=== PATIENT | female | born 1985 ===

== ENCOUNTER 2020-10-06 14:00 | Outpatient (REF) | payer OTHER, SELFPAY ==
[2020-10-08 13:26] LABS: C. trachomatis RNA TMA NOT DETECTED (NOT DETECTED); N. gonorrhoeae RNA TMA NOT DETECTED (NOT DETECTED)
== END 2020-10-06 14:01 | disposition home or self-care (01) ==
LOC: HO.LAB 14:00
PROVIDERS: PCP Internal Medicine; Visit Provider Advanced Practice Midwife
DX: Z01.419 Encounter for gynecological examination (general) (routine) without abnormal findings (principal); Z20.2 Contact with and (suspected) exposure to infections with a predominantly sexual mode of transmission
CPT/HCPCS: 36415; 87491; 87591; 99395

== ENCOUNTER 2020-10-24 10:56 | Outpatient (REF) | payer OTHER, SELFPAY ==
[2020-10-24 12:51] LABS: MANUAL DIFF FLAG NO
[2020-10-24 13:05] LABS: Basophils Percent Auto 0.4 % (0-2); Eosinophils Absolute Auto 0.1 X10*3/uL (0.0-0.4); Eosinophils Percent Auto 1.2 % (0-4); Hematocrit 39.1 % (37-47); Hemoglobin 12.3 g/dl (12.0-16.0); Imm Gran Abs Auto 0.01 X10*3/uL (0.00-0.03); Imm Gran Pct Auto 0.2 % (0.0-0.4); Lymphocytes Absolute Auto 1.9 X10*3/uL (1.2-4.9); Lymphocytes Percent Auto 39.3 % (20-40); Mean Corpuscular HGB Conc 31.5 g/dl (31.0-35.0); Mean Corpuscular Hemoglobin 26.1 pg (27.0-33.0); Mean Corpuscular Volume 82.8 fL (80-98); Mean Platelet Volume 11.4 fL (9.4-12.3); Monocytes Absolute Auto 0.4 X10*3/uL (0.1-1.2); Monocytes Percent Auto 8.6 % (2-11); Neutrophils Absolute Auto 2.5 X10*3/uL (2.0-8.3); Neutrophils Percent Auto 50.3 % (45-73); Platelet Count 243 X10*3/uL (160-400); Red Blood Count 4.72 X10*6/uL (4.20-5.50); White Blood Count 4.9 X10*3/uL (4.8-10.8)
[2020-10-24 13:40] LABS: Alanine Aminotransferase 7 U/L (0-31); Albumin Level 4.3 g/dL (3.5-5.0); Alkaline Phosphatase 56 U/L (39-117); Anion Gap 11 (12-20); Aspartate Amino Transferase 15 U/L (5-31); Bilirubin Total 0.4 mg/dL (0.0-1.0); Blood Urea Nitrogen 16 mg/dL (9-16); Calcium 9.4 mg/dL (8.4-10.2); Carbon Dioxide 28 mmol/L (22-29); Chloride 104 mmol/L (96-108); Cholesterol 177 mg/dL; Estimated Glomerular Filt Rate > 60; Glucose Fasting 93 mg/dL (60-99); HDL Cholesterol 54 mg/dL; LDL Cholesterol Calculated 112 mg/dl; Potassium 4.1 mmol/L (3.3-5.1); Sodium 139 mmol/L (135-145); Total Protein 7.4 g/dL (6.5-8.0); Triglycerides 56 mg/dL
[2020-10-24 14:01] LABS: Thyroid Stimulating Hormone 2.57 uIU/mL (0.32-4.0); Vitamin D 25-OH Total 17.2 ng/mL (>30)
[2020-10-25 18:57] LABS: C. trachomatis RNA TMA NOT DETECTED (NOT DETECTED); N. gonorrhoeae RNA TMA NOT DETECTED (NOT DETECTED)
== END 2020-10-24 10:57 | disposition home or self-care (01) ==
LOC: HO.LAB 10:56
PROVIDERS: Absent Provider Advanced Practice Midwife; PCP Internal Medicine; Visit Provider Internal Medicine
DX: Z00.00 Encounter for general adult medical examination without abnormal findings (principal); J45.40 Moderate persistent asthma, uncomplicated; J30.2 Other seasonal allergic rhinitis; Z20.2 Contact with and (suspected) exposure to infections with a predominantly sexual mode of transmission
CPT/HCPCS: 36415; 80053; 80061; 82306; 84443; 85025; 87491; 87591

== ENCOUNTER → 2020-12-20 08:00 | Outpatient (BNVA) | payer OTHER, SELFPAY | PROVIDERS: PCP Internal Medicine; Visit Provider Obstetrics & Gynecology | DX: O21.9 Vomiting of pregnancy, unspecified (principal); R11.10 Vomiting, unspecified | CPT/HCPCS: 81025; 99212 ==

== ENCOUNTER 2020-12-22 12:39 | Outpatient (REF) | payer OTHER, SELFPAY ==
--- NOTE | ~2020-12-22 | US_ITS ---
EXAMINATION: US OBSTETRICAL ULTRASOUND CLINICAL INFORMATION: Unknown LMP. For size and dates. COMPARISON: None. LMP: 11/07/2020. Gestational age by maternal dates is 6 weeks and 3 days. Estimated date of delivery by maternal dates is 08/14/2021 . TECHNIQUE: Transabdominal and transvaginal imaging of pelvis is performed. FINDINGS: There is a single live intrauterine fetus within crown-rump length of 0.41 cm corresponding to 6 weeks and 1 day and JASSON of 08/16/2021. There is visualization of gestational sac, yolk sac and pole. There is no motion seen yet. The heart rate measures 185 bpm and is variable There is a hypoechoic area adjacent to gestational sac suspicious for a subchorionic bleed. Patient does have some spotting and cramping since yesterday. Right ovary measures 4.5 x 2.3 x 1.9 cm and a small corpus luteal cyst within measuring 1.9 x 1 0.3 to 1.8 cm. Left ovary measures 2.8 x 1.3 x 1.8 cm. There is no free fluid adjacent ovary. US/US OB <= 14 weeks fetus IMPRESSION: 1. Single intrauterine gestation with ultrasound gestational age of 6 weeks and 1 day +/- 4 days. 2. Estimated date of delivery is 08/16/2021 +/- 4 days. 3. Suspect small subchorionic bleed adjacent to gestational sac. 4. Small corpus luteal cyst right ovary.
--- NOTE | ~2020-12-22 | US_ITS ---
EXAMINATION: US OBSTETRICAL ULTRASOUND CLINICAL INFORMATION: Unknown LMP. For size and dates. COMPARISON: None. LMP: 11/07/2020. Gestational age by maternal dates is 6 weeks and 3 days. Estimated date of delivery by maternal dates is 08/14/2021 . TECHNIQUE: Transabdominal and transvaginal imaging of pelvis is performed. FINDINGS: There is a single live intrauterine fetus within crown-rump length of 0.41 cm corresponding to 6 weeks and 1 day and JASSON of 08/16/2021. There is visualization of gestational sac, yolk sac and pole. There is no motion seen yet. The heart rate measures 185 bpm and is variable There is a hypoechoic area adjacent to gestational sac suspicious for a subchorionic bleed. Patient does have some spotting and cramping since yesterday. Right ovary measures 4.5 x 2.3 x 1.9 cm and a small corpus luteal cyst within measuring 1.9 x 1 0.3 to 1.8 cm. Left ovary measures 2.8 x 1.3 x 1.8 cm. There is no free fluid adjacent ovary. US/US OB transvaginal IMPRESSION: 1. Single intrauterine gestation with ultrasound gestational age of 6 weeks and 1 day +/- 4 days. 2. Estimated date of delivery is 08/16/2021 +/- 4 days. 3. Suspect small subchorionic bleed adjacent to gestational sac. 4. Small corpus luteal cyst right ovary.
== END 2020-12-22 12:40 | disposition home or self-care (01) ==
LOC: HO.US 12:39
PROVIDERS: PCP Internal Medicine; Visit Provider Obstetrics & Gynecology
DX: Z36.87 Encounter for antenatal screening for uncertain dates (principal); Z34.91 Encounter for supervision of normal pregnancy, unspecified, first trimester
CPT/HCPCS: 76801; 76817

== ENCOUNTER 2020-12-26 15:13 | Emergency (ER) | payer OTHER, SELFPAY ==
[2020-12-26 17:33] VITALS: BP 137/83; PULSE 68; RESP 20; TEMP 36.8; O2SAT 99; BMI 24.6
[2020-12-26 17:55] LABS: MANUAL DIFF FLAG NO
[2020-12-26 18:01] LABS: Glucose Urine UA NEG (NEG); Leukocyte Esterase Urine NEG (NEG); Nitrite Urine NEG (NEG); Specific Gravity - Urine >= 1.030 (1.005-1.025); Urine Blood 2+ (NEG); Urine Ketones NEG (NEG); Urine Protein NEG (NEG-TRACE)
[2020-12-26 18:07] LABS: Appearance Urine CLEAR; Color Urine YELLOW
[2020-12-26 18:15] LABS: Basophils Percent Auto 0.3 % (0-2); Eosinophils Absolute Auto 0.1 X10*3/uL (0.0-0.4); Eosinophils Percent Auto 0.7 % (0-4); Hematocrit 37.7 % (37-47); Hemoglobin 12.4 g/dl (12.0-16.0); Imm Gran Abs Auto 0.02 X10*3/uL (0.00-0.03); Imm Gran Pct Auto 0.3 % (0.0-0.4); Lymphocytes Absolute Auto 1.9 X10*3/uL (1.2-4.9); Lymphocytes Percent Auto 24.9 % (20-40); Mean Corpuscular HGB Conc 32.9 g/dl (31.0-35.0); Mean Corpuscular Hemoglobin 27.3 pg (27.0-33.0); Mean Platelet Volume 10.7 fL (9.4-12.3); Monocytes Absolute Auto 0.6 X10*3/uL (0.1-1.2); Monocytes Percent Auto 7.3 % (2-11); Neutrophils Absolute Auto 5.1 X10*3/uL (2.0-8.3); Neutrophils Percent Auto 66.5 % (45-73); Platelet Count 248 X10*3/uL (160-400); Red Blood Count 4.54 X10*6/uL (4.20-5.50); White Blood Count 7.7 X10*3/uL (4.8-10.8)
[2020-12-26 18:21] LABS: Alanine Aminotransferase 16 U/L (0-31); Albumin Level 4.4 g/dL (3.5-5.0); Alkaline Phosphatase 61 U/L (39-117); Anion Gap 12 (12-20); Aspartate Amino Transferase 18 U/L (5-31); Bilirubin Direct < 0.2 mg/dL (0.0-0.5); Bilirubin Total 0.3 mg/dL (0.0-1.0); Blood Urea Nitrogen 15 mg/dL (9-16); Calcium 9.3 mg/dL (8.4-10.2); Carbon Dioxide 26 mmol/L (22-29); Chloride 102 mmol/L (96-108); Creatinine Clr Calc Pharmacy 87.6; Estimated Glomerular Filt Rate > 60; Glucose Random 116 mg/dL (60-115); Lipase 17 U/L (8-78); Potassium 4.3 mmol/L (3.3-5.1); Sodium 136 mmol/L (135-145); Total Protein 7.7 g/dL (6.5-8.0)
[2020-12-26 18:39] LABS: Mucus Urine 2+ /LPF; Squamous Epithelial Cell Urine 1+ /LPF; WBC Urine 0 /HPF (0-4)
--- NOTE | 2020-12-26 21:37 | ED_ITS ---
HPI - Nausea/Vomiting/Diarrhea General Chief complaint: Nausea/Vomiting/Diarrhea Stated complaint: Cramping/Vaginal bleeding/6 wks preg Time Seen by Provider: 12/26/20 21:07 Source: patient Mode of arrival: ambulatory History of Present Illness HPI Narrative: 35-year-old female, gravid, recent ultrasound demonstrating an IUP and as of today 7 weeks. You comes in with persistent related nausea and vomiting without fever, chills, diarrhea and describes cramping as well as vaginal spotting. Patient states that she was seen in the clinic and started on B6, but this has not helped because she has continued to be nauseous and vomiting. Related Data Home Medications Medication Instructions Recorded Confirmed albuterol sulfate 90 mcg/actuation 2 puff INHALATION Q6H PRN 10/06/20 aerosol inhaler cetirizine 10 mg capsule 10 mg PO DAILY PRN 10/06/20 Previous Rx's Medication Instructions Recorded PNV no.151-iron 27 mg-folic 800 1 cap PO DAILY #90 cap 12/20/20 mcg-omega3 260 [id number] capsule doxylamine succinate 25 mg tablet 25 mg PO BEDTIME PRN #90 tab 12/20/20 pyridoxine (vitamin B6) 25 mg 25 mg PO TID #90 tab 12/20/20 tablet ondansetron 4 mg PO Q8H PRN #7 tab 12/26/20 Allergies Allergy/AdvReac Type Severity Reaction Status Date / Time aspirin [ASPIRIN] Allergy Severe ITCHINESS, Verified 12/20/20 08:06 itch SEAFOOD Allergy Unknown RASH Uncoded 12/20/20 08:06 Review of Systems Review of Systems: Positives and negatives as stated in HPI 10 point review of systems is otherwise negative. FOR[facility]LY [facility] Past Medical History Source: nursing notes reviewed Medical History Asthma Breast inflammation Family History Family History Mother HTN (hypertension) Father HTN (hypertension) Social History Social History Alcohol intake: never Smoking Status: Never smoker Advance Directives: No Gender identity: female Physical Exam Vital Signs: Vital Signs: Last Vital Signs Temp 98.2 F 12/26/20 17:33 Pulse 68 12/26/20 17:33 Resp 20 12/26/20 17:33 BP 137/83 12/26/20 17:33 Pulse Ox 99 12/26/20 17:33 Body Mass Index 24.6 VITAL SIGNS: Reviewed. GENERAL: Well developed, well nourished, in no acute distress. HEAD: Normocephalic/atraumatic EYES: PERRLA, EOMI OROPHARYNX: no oral lesions noted, posterior pharynx clear, tacky mucosa NECK: Supple, no adenopathy LUNGS: Normal breath sounds. No adventitious sounds or accessory muscle use. SpO2<99> CARDIOVASCULAR: Regular rate and rhythm without noted murmurs ABDOMEN: Soft, non-tender, non-distended with bowel sounds. MUSCULOSKELETAL: No tenderness, deformities, or effusions noted on gross inspection. EXTREMITIES: No edema. SKIN: Inspection of the skin reveals no rashes NEUROLOGIC: Alert and oriented x 4. Course Course Course Narrative: 35-year-old female at 7 weeks with history and clinical presentation consistent with related nausea and vomiting and mild dehydration. Patient's cramping and spotting that is been noted has been e valuated on 12/22 with transvaginal ultrasound and patient was noted to have a suspected subchorionic bleed next to the gestational sac. She was informed at this time that she may continue to have a little bit of spotting here in there and that this is common in the 1st trimester. However, if she notes a large your gush of blood or any clots she should return to the emergency department. Otherwise, she was informed that she would be treated with IV fluids as well as Zofran and 1 she was able to tolerate oral intake should be discharged home with instructions to follow-up with her [employer]. On re-evaluation patient is feeling much better and has tolerated oral intake. She will be discharged home in stable condition. MDM - Nausea/Vomiting/Diarrhea Lab Data Result diagrams: 12/26/20 17:48 12/26/20 17:48 Labs: Lab Results 12/26/20 12/26/20 12/26/20 Range/Units 17:48 17:48 17:48 WBC 7.7 (4.8-10.8) X10*3/uL RBC 4.54 (4.20-5.50) X10*6/uL Hgb 12.4 (12.0-16.0) g/dl Hct 37.7 (37-47) % MCV 83.0 (80-98) fL MCH 27.3 (27.0-33.0) pg MCHC 32.9 (31.0-35.0) g/dl RDW 13.0 (11.0-16.0) % Plt Count 248 (160-400) X10*3/uL MPV 10.7 (9.4-12.3) fL Immature Gran % (Auto) 0.3 (0.0-0.4) % Neut % (Auto) 66.5 (45-73) % Lymph % (Auto) 24.9 (20-40) % Evans % (Auto) 7.3 (2-11) % Eos % (Auto) 0.7 (0-4) % Baso % (Auto) 0.3 (0-2) % Lymph # (Auto) 1.9 (1.2-4.9) X10*3/uL Evans # (Auto) 0.6 (0.1-1.2) X10*3/uL Eos # (Auto) 0.1 (0.0-0.4) X10*3/uL Baso # (Auto) 0.0 (0.0-0.2) X10*3/uL Abs Immat Gran (auto) 0.02 (0.00-0.03) X10*3/uL Absolute Neuts (auto) 5.1 (2.0-8.3) X10*3/uL Absolute Nucleated RBC 0.000 (0.0-0.012) X10*3/uL Nucleated RBC % (auto) 0.0 (0.0-0.2) /100WBC Sodium 136 (135-145) mmol/L Potassium 4.3 (3.3-5.1) mmol/L Chloride 102 (96-108) mmol/L Carbon Dioxide 26 (22-29) mmol/L Anion Gap 12 (12-20) BUN 15 (9-16) mg/dL Creatinine 0.71 (0.5-1.4) mg/dL Estim Creat Clear Calc 87.6 Estimated GFR > 60 Random Glucose 116 H (60-115) mg/dL Calcium 9.3 (8.4-10.2) mg/dL Total Bilirubin 0.3 (0.0-1.0) mg/dL Direct Bilirubin < 0.2 (0.0-0.5) mg/dL AST 18 (5-31) U/L ALT 16 (0-31) U/L Alkaline Phosphatase 61 (39-117) U/L Total Protein 7.7 (6.5-8.0) g/dL Albumin 4.4 (3.5-5.0) g/dL Lipase 17 (8-78) U/L Urine Color YELLOW Urine Appearance CLEAR Urine pH 6.0 (5.0-8.0) Ur Specific [place] >= 1.030 H (1.005-1.025) Urine Protein NEG (NEG-TRACE) MG/DL Urine Glucose (UA) NEG (NEG) MG/DL Urine Ketones NEG (NEG) MG/DL Urine Blood 2+ H (NEG) Urine Nitrite NEG (NEG) Ur Leukocyte Esterase NEG (NEG) Urine RBC 1-4 (0) /HPF Urine WBC 0 (0-4) /HPF Ur Squamous Epith Cells 1+ /LPF Urine Bacteria NONE /LPF Urine Mucus 2+ /LPF Discharge Plan Discharge Clinical Impression: Nausea and vomiting during , First trimester bleeding Patient Disposition: Home, Self-Care Instructions: Nausea and Vomiting in (ED), Non-Threatening First Trimester Vaginal Bleed (ED) Additional Instructions: 1. Resume all home medications as prescribed. 2. Continue to stay well hydrated. 3. 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 Do not hesitate to return to the emergency department should you experience any acute worsening of symptoms. Prescriptions: New ondansetron 4 mg tablet,disintegrating 4 mg PO Q8H PRN (Reason: nausea and vomiting) Qty: 7 RF: 0 No Action albuterol sulfate 90 mcg/actuation HFA aerosol inhaler 2 puff inhalation Q6H PRNRF: 0 Zyrtec 10 mg capsule 10 mg PO DAILY PRNRF: 0 Multi-DHA(with vit K) 27 mg iron-800 mcg-260 mg capsule 1 cap PO DAILY Qty: 90 RF: 3 pyridoxine (vitamin B6) 25 mg tablet 25 mg PO TID Qty: 90 RF: 3 Sleep Aid (doxylamine) 25 mg tablet 25 mg PO BEDTIME PRN (Reason: sleep) Qty: 90 RF: 3 Referrals: London Curry MD, DO [Primary Care Provider] - 2 days
[2020-12-26] MEDS: 0.9 % Sodium Chloride 1,000 ML 999 ML IV (22:20)
[2020-12-26 23:00] VITALS: BP 122/79; PULSE 70; RESP 15; O2SAT 99
== END 2020-12-26 23:54 | disposition home or self-care (01) ==
PROVIDERS: Emergency Provider Student in an Organized Health Care Education/Training Program; PCP Internal Medicine
DX: O20.9 Hemorrhage in early pregnancy, unspecified (principal); O21.9 Vomiting of pregnancy, unspecified; Z3A.01 Less than 8 weeks gestation of pregnancy
CPT/HCPCS: 36415; 80048; 80076; 81001; 83690; 85025; 96360; 99284

== ENCOUNTER → 2021-01-12 13:55 | Outpatient (BNVA) | payer OTHER, SELFPAY | PROVIDERS: Visit Provider Advanced Practice Midwife | DX: O09.529 Supervision of elderly multigravida, unspecified trimester (principal); O09.291 Supervision of pregnancy with other poor reproductive or obstetric history, first trimester; Z3A.09 9 weeks gestation of pregnancy; Z98.82 Breast implant status | CPT/HCPCS: 99212 ==

== ENCOUNTER 2021-01-16 11:15 | Outpatient (REF) | payer OTHER, SELFPAY ==
[2021-01-16 13:07] LABS: MANUAL DIFF FLAG NO
[2021-01-16 13:21] LABS: Basophils Percent Auto 0.2 % (0-2); Eosinophils Percent Auto 0.5 % (0-4); Hemoglobin 11.4 g/dl (12.0-16.0); Imm Gran Abs Auto 0.02 X10*3/uL (0.00-0.03); Imm Gran Pct Auto 0.3 % (0.0-0.4); Lymphocytes Absolute Auto 1.7 X10*3/uL (1.2-4.9); Lymphocytes Percent Auto 27.6 % (20-40); Mean Corpuscular HGB Conc 32.6 g/dl (31.0-35.0); Mean Corpuscular Hemoglobin 26.9 pg (27.0-33.0); Mean Corpuscular Volume 82.5 fL (80-98); Mean Platelet Volume 10.4 fL (9.4-12.3); Monocytes Absolute Auto 0.3 X10*3/uL (0.1-1.2); Monocytes Percent Auto 5.5 % (2-11); Neutrophils Absolute Auto 4.1 X10*3/uL (2.0-8.3); Neutrophils Percent Auto 65.9 % (45-73); Platelet Count 250 X10*3/uL (160-400); Red Blood Count 4.24 X10*6/uL (4.20-5.50); Red Cell Distribution Width 13.5 % (11.0-16.0); White Blood Count 6.2 X10*3/uL (4.8-10.8)
[2021-01-16 13:43] LABS: Glucose 1 Hour PP 50gm Dose 159 mg/dL (60-140)
[2021-01-16 13:47] LABS: Alanine Aminotransferase 10 U/L (0-31); Aspartate Amino Transferase 13 U/L (5-31); Blood Urea Nitrogen 9 mg/dL (9-16); Estimated Glomerular Filt Rate > 60
[2021-01-16 14:00] LABS: Syphilis Screen Nonreactive (Nonreactive)
[2021-01-16 15:05] LABS: Creatinine Urine 254.36 mg/dL; Protein/Creatinine Ratio, Ur 0.07 (<0.2); Total Protein Urine Random 17 mg/dL (<12)
[2021-01-16 15:06] LABS: Amphetamine Screen Urine Not Detected (Not Detect); Barbiturates, Urine Not Detected (Not Detect); Benzodiazepines Screen Urine Not Detected (Not Detect); Cannabinoid Screen Urine Not Detected (Not Detect); Cocaine Screen Urine Not Detected (Not Detect); Opiate Screen Urine Not Detected (Not Detect); Phencyclidine Screen Urine Not Detected (Not Detect)
[2021-01-17 04:53] LABS: HBsAGNum1 0.14 S/CO (0.00-0.99); HIV AB/AG Nonreactive (Nonreactive); HIV Num 1 0.06 S/CO (0.00-0.99); Hepatitis B Surface Antigen Negative (Negative); ~Hepatitis C Antibody Nonreactive (Nonreactive)
[2021-01-17 09:11] LABS: Rubella IgG Antibody 1.13 Index
[2021-01-17 09:38] LABS: CT PCR NOT DETECTED (Not Detect.); NG PCR NOT DETECTED (Not Detect.)
[2021-01-18 06:12] LABS: Varicella IgG Antibody <135.00 index
== END 2021-01-16 11:16 | disposition home or self-care (01) ==
LOC: HO.LAB 11:15
PROVIDERS: PCP Internal Medicine; Visit Provider Advanced Practice Midwife
DX: O09.291 Supervision of pregnancy with other poor reproductive or obstetric history, first trimester (principal); O09.521 Supervision of elderly multigravida, first trimester; Z20.2 Contact with and (suspected) exposure to infections with a predominantly sexual mode of transmission; Z83.3 Family history of diabetes mellitus
CPT/HCPCS: 80307; 82565; 84156; 84450; 84460; 84520; 84550; 85025; 86762; 86780; 86787; 86803; 86850; 86900; 86901; 87086; 87340; 87389; 87491; 87591

== ENCOUNTER 2021-01-18 10:24 | Outpatient (REF) | payer OTHER, SELFPAY ==
[2021-01-18 11:54] LABS: Glucose Fasting 84 mg/dL (60-99)
[2021-01-18 12:28] LABS: Glucose 1 Hour 154 mg/dL
[2021-01-18 13:35] LABS: Glucose 2 Hour 125 mg/dL
[2021-01-18 14:51] LABS: Glucose 3 Hour 121 mg/dL
== END 2021-01-18 10:25 | disposition home or self-care (01) ==
LOC: HO.LAB 10:24
PROVIDERS: Visit Provider Advanced Practice Midwife
DX: R73.09 Other abnormal glucose (principal)
CPT/HCPCS: 36415; 82951

== ENCOUNTER 2021-01-27 10:49 | Outpatient (REF) | payer OTHER, SELFPAY ==
--- NOTE | ~2021-01-27 | US_ITS ---
EXAMINATION: OBSTETRICAL ULTRASOUND, FIRST TRIMESTER HISTORY: 35-year-old at 11.4 weeks of gestation AMA NT screening COMPARISON: 12/22/2020 TECHNIQUE: Real time transabdominal imaging with color and M-mode Doppler. FINDINGS: A single, live IUP CRL of 52.6 mm c/w 12.0wks is noted. Heart Rate: 169 beats per minute. Normal yolk sac seen. NT was 1.1.mm. NB Present The embryo appears sonographically wnl for this GA. Both maternal ovaries are seen and appear normal. GESTATIONAL AGE: 1. Established GA: 11.4 wks 2. GA from [facility]: 12.0 wks ESTIMATED DATE OF DELIVERY: 1. Established JASSON: 08/14/2021 2. JASSON from [facility]: 08/11/2021 US/US OB 1T nuc measure add IMPRESSION: 1. A single live IUP 2. Size equals dates 3. NT of 1.1 mm MFM Consultation: I reviewed the ultrasound findings along with significance of NT measurement. The NT of less than 3mm is generally reassuring. However, the sensitivity for T21 detection is only 60%. I reviewed the availability of serum aneuploidy screening which includes cell-free DNA and placental protein based tests. I discussed the sensitivity, false-positive rate, and other limitations associated with each test. I also reviewed the availability of invasive diagnostic tests that are associated small but definite risk of miscarriage. We also reviewed the differences between screening tests and diagnostic tests. After our discussion, she opted for the First trimester screening that is based on cell-free DNA or non-invasive testing (NIPT). The result will be faxed to your office in approximately 7 days. A follow up at 18 weeks for survey has been scheduled. Thank you very much for this referral. Total time 30 minutes. The time spent was devoted to counseling the patient about the disease and diagnosis, coordinating care including reviewing her records, pertinent lab data and studies, as well as discussing diagnostic evaluation and workup, plan therapeutic interventions and future disposition of care. This includes any additional research needed to obtain further information in formulating the plan of care of this patient. This note was generated with a voice recognition program. Please excuse any errors which may have been overlooked during my review of this note. Sometimes these errors may affect the content or meaning of a given sentence.
== END 2021-01-27 10:50 | disposition home or self-care (01) ==
LOC: HO.US 10:49
PROVIDERS: PCP Internal Medicine; Visit Provider Advanced Practice Midwife
DX: O09.511 Supervision of elderly primigravida, first trimester (principal); Z36.82 Encounter for antenatal screening for nuchal translucency; Z3A.11 11 weeks gestation of pregnancy
CPT/HCPCS: 76813; 76814

== ENCOUNTER 2021-02-01 10:38 | Outpatient (REF) | payer OTHER, SELFPAY ==
[2021-02-01 15:24] LABS: CT PCR NOT DETECTED (Not Detect.); NG PCR NOT DETECTED (Not Detect.)
== END 2021-02-01 10:39 | disposition home or self-care (01) ==
LOC: HO.LAB 10:38
PROVIDERS: Visit Provider Advanced Practice Midwife
DX: O21.9 Vomiting of pregnancy, unspecified (principal); O99.011 Anemia complicating pregnancy, first trimester; D64.9 Anemia, unspecified; O35.9XX0 Maternal care for (suspected) fetal abnormality and damage, unspecified, not applicable or unspecified; Z3A.12 12 weeks gestation of pregnancy
CPT/HCPCS: 87491; 87591; 99212

== ENCOUNTER 2021-03-01 10:29 | Outpatient (REF) | payer OTHER, SELFPAY ==
[2021-03-02 05:35] LABS: CT PCR NOT DETECTED (Not Detect.); NG PCR NOT DETECTED (Not Detect.)
[2021-03-02 09:47] LABS: BV Int Neg Control Negative (Negative); BV Int Pos Control Positive (Positive)
== END 2021-03-01 10:30 | disposition home or self-care (01) ==
LOC: HO.LAB 10:29
PROVIDERS: Visit Provider Advanced Practice Midwife
DX: O26.899 Other specified pregnancy related conditions, unspecified trimester (principal); R10.2 Pelvic and perineal pain; Z3A.16 16 weeks gestation of pregnancy
CPT/HCPCS: 81003; 87480; 87491; 87510; 87591; 87660; 99212

== ENCOUNTER 2021-03-10 10:28 | Outpatient (REF) | payer OTHER, SELFPAY ==
--- NOTE | ~2021-03-10 | US_ITS ---
EXAMINATION: OBSTETRICAL ULTRASOUND, Follow up HISTORY: 35-year-old at the 17.4 weeks of gestation Lower abdominal tenderness COMPARISON: 01/27/2021 TECHNIQUE: Real time transabdominal imaging with color and M-mode Doppler. PRESENTATION: Vertex PLACENTA LOCATION: Anterior without previa. Cervix 4.8 cm on transabdominal view. AMNIOTIC FLUID: Normal MEASUREMENTS: 1. Biparietal Diameter: 4.3 cm; 16.5 wks 2. Head Circumference: 13.9 cm; 17.3 wks 3. Abdominal Circumference: 11.5 cm; 17.2 wks 4. Femur Length: 2.3 cm; 17.1 wks 5. Heart Rate: 157 beats per minute WEIGHT: Estimated weight is 184 grams (0 lbs 6 oz) -- 21 %. The survey was not attempted due to early gestational age. Bilateral ovaries are benign. GESTATIONAL AGE: 1. Established GA: 17.4 wks 2. GA from [facility]: 17.1 wks ESTIMATED DATE OF DELIVERY: 1. Established JASSON: 08/14/2021 2. JASSON from [facility]: 08/17/2021 US/US OB follow up IMPRESSION: 1. A single fetus with appropriate interval growth. 2. Normal adnexa and ovaries. 3. Normal cervical length transabdominally view I reviewed the limitations of ultrasound. Gave her reassurance that the adnexa are benign. The lower uterine segments and pain is most likely ligamental in origin. RECOMMENDATIONS: 1. She is to follow-up in 2 weeks for survey Thank you very much for this referral. This note was generated with a voice recognition program. Please excuse any errors which may have been overlooked during my review of this note. Sometimes these errors may affect the content or meaning of a given sentence.
== END 2021-03-10 10:29 | disposition home or self-care (01) ==
LOC: HO.US 10:28
PROVIDERS: Visit Provider Advanced Practice Midwife
DX: O09.512 Supervision of elderly primigravida, second trimester (principal); O26.892 Other specified pregnancy related conditions, second trimester; R10.2 Pelvic and perineal pain
CPT/HCPCS: 76816

== ENCOUNTER 2021-03-24 08:52 | Outpatient (REF) | payer OTHER, SELFPAY ==
--- NOTE | ~2021-03-24 | US_ITS ---
EXAMINATION: US OBSTETRICAL CLINICAL INFORMATION: 35-year-old at the 19.4 weeks of gestation [place] Screening for anomaly COMPARISON: 03/10/2021 TECHNIQUE: Real-time transabdominal ultrasound was performed using C1-5 megahertz transducer. FINDINGS: A single, active, fetus is seen in vertex presentation. The placenta is anterior without previa, and the amniotic fluid volume is wnl. MEASUREMENTS: 1. Biparietal Diameter: 4.3 cm; 19.0 wks 2. Occipital Frontal Diameter: 6.1 cm 3. Head Circumference: 17.0 cm; 19.5 wks 4. Abdominal Circumference: 14.3 cm; 19.5 wks 5. Femur Length: 3.2 cm; 19.6 wks 6. Humerus Length: 6 3.0 cm; 19.5 wks 7. Tibia Length: 2.6 cm; 19.3 wks 8. Ulna Length: 2.7 cm; 20.1 wks 9. Lateral ventricle: 0.53 cm 10. Cerebellum: 2.0 cm; 20.5 wks 11. Cisterna Magna: 0.5 cm 12. Nuchal Fold: 4.5 mm 13. Heart Rate: 140 beats per minute Rt ovary: normal Lt ovary: Not visualized Cervical length 3.8 cm on T/A. GESTATIONAL AGE: 1. Established GA: 19.4 wks 2. GA from [facility]: 19.4 wks ESTIMATED DATE OF DELIVERY: 1. Established JASSON: 08/14/2021 2. JASSON from [facility]: 08/14/2021 ANATOMY: The visualized anatomy includes but not limited to: 1. Cranium: Normal 2. Intracranial anatomy: cavum septum pellucidi, lateral ventricles, choroid plexus, cerebellum, posterior fossa, third and fourth ventricles. 3. face: orbits, lip/palate, profile, nasal bone 4. Heart: four-chamber view of the heart, ventricular septum, foramen ovale, pulmonary vein, left and right outflow tracts, three-vessel view, 3 vessel trachea view, aortic and ductal arches, situs.. 5. Diaphragm: Normal 6. Abdominal wall: Normal 7. Cord Insertion: Normal 8. Spine: Cervical, thoracic, lumbar, sacral. 9. Stomach: Normal size and shape 10. Right Kidney: Normal 11. Left Kidney: Normal 12. 3 vessel cord: Normal 13. Upper extremity: Open hands, fifth digit. 14. Lower extremity: Tibia, fibula, bilateral feet. 15. Bladder: Normal 16. Genitalia: Male, patient aware US/US OB /maternal detail IMPRESSION: 1. Single, living, intrauterine with appropriate biometry. 2. Normal survey DISCUSSION: I reviewed today's ultrasound findings. We discussed the limitations of ultrasound in diagnosing aneuploidy and other congenital abnormalities. I reviewed the differences between screening test and diagnostic test. Amniocentesis was discussed and declined. She was informed that the baseline incidence of congenital abnormalities is approximately 3-5%. Not all these conditions are diagnosable in utero. RECOMMENDATIONS: 1. Follow-up when necessary Thank you for allowing me to participate in her care. Total time 30 minutes. The time spent was devoted to counseling the patient about the disease and diagnosis, coordinating care including reviewing her records, pertinent lab data and studies, as well as discussing diagnostic evaluation and workup, plan therapeutic interventions and future disposition of care. This includes any additional research needed to obtain further information in formulating the plan of care of this patient. This note was generated with a voice recognition program. Please excuse any errors which may have been overlooked during my review of this note. Sometimes these errors may affect the content or meaning of a given sentence.
== END 2021-03-24 08:53 | disposition home or self-care (01) ==
LOC: HO.US 08:52
PROVIDERS: Visit Provider Advanced Practice Midwife
DX: Z34.92 Encounter for supervision of normal pregnancy, unspecified, second trimester (principal); Z36.3 Encounter for antenatal screening for malformations
CPT/HCPCS: 76811

== ENCOUNTER → 2021-03-30 08:59 | Outpatient (BNVA) | payer OTHER, SELFPAY | PROVIDERS: Visit Provider Advanced Practice Midwife | DX: O09.522 Supervision of elderly multigravida, second trimester (principal); Z3A.20 20 weeks gestation of pregnancy | CPT/HCPCS: 99212 ==

== ENCOUNTER → 2021-04-28 13:13 | Outpatient (BNVA) | payer OTHER, SELFPAY | PROVIDERS: Visit Provider Advanced Practice Midwife | DX: Z34.82 Encounter for supervision of other normal pregnancy, second trimester (principal); Z3A.24 24 weeks gestation of pregnancy | CPT/HCPCS: 81003; 99212 ==

== ENCOUNTER → 2021-05-26 13:31 | Outpatient (BNVA) | payer OTHER, SELFPAY | PROVIDERS: Visit Provider Advanced Practice Midwife | DX: O09.293 Supervision of pregnancy with other poor reproductive or obstetric history, third trimester (principal); Z83.3 Family history of diabetes mellitus; Z3A.28 28 weeks gestation of pregnancy | CPT/HCPCS: 81003; 99212 ==

== ENCOUNTER → 2021-06-09 13:58 | Outpatient (BNVA) | payer OTHER, SELFPAY | PROVIDERS: Visit Provider Advanced Practice Midwife | DX: Z34.83 Encounter for supervision of other normal pregnancy, third trimester (principal); Z3A.30 30 weeks gestation of pregnancy | CPT/HCPCS: 99212 ==

== ENCOUNTER 2021-06-12 12:30 | Emergency (ER) | payer OTHER, SELFPAY ==
--- NOTE | ~2021-06-12 | XR_ITS ---
EXAMINATION: XR CHEST CLINICAL INFORMATION: 2 weeks cough. 7 months COMPARISON: Chest 11/11/2017 TECHNIQUE: Frontal view of the chest was obtained. FINDINGS: No significant abnormality is noted involving the heart, lungs, mediastinum, bony thorax or soft tissues. XR/XR chest 1V IMPRESSION: Unremarkable chest examination.
[2021-06-12 14:17] VITALS: BP 128/76; PULSE 85; RESP 20; TEMP 36.8; O2SAT 100; BMI 28.5
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
[2021-06-12 15:50] LABS: COVID-19 Test Negative (Negative)
--- NOTE | 2021-06-12 16:41 | PC.NURSE ---
FHR 136
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
[2021-06-12 17:18] VITALS: BP 127/74; PULSE 99; RESP 20; TEMP 36.7; O2SAT 99
== END 2021-06-12 18:03 | disposition home or self-care (01) ==
PROVIDERS: Physician Assistant; Emergency Provider Emergency Medicine; PCP Internal Medicine
DX: J06.9 Acute upper respiratory infection, unspecified (principal); R05 Cough; Z20.822 Contact with and (suspected) exposure to COVID-19; Z79.899 Other long term (current) drug therapy
CPT/HCPCS: 36415; 71045; 87635; 99282; 99283

== ENCOUNTER 2021-06-21 09:47 | Outpatient (REF) | payer OTHER, SELFPAY ==
[2021-06-21 13:50] LABS: Hematocrit 29.9 % (37-47); Hemoglobin 9.6 g/dl (12.0-16.0); Mean Corpuscular HGB Conc 32.1 g/dl (31.0-35.0); Mean Corpuscular Hemoglobin 26.4 pg (27.0-33.0); Mean Corpuscular Volume 82.4 fL (80-98); Mean Platelet Volume 9.9 fL (9.4-12.3); Platelet Count 277 X10*3/uL (160-400); Red Blood Count 3.63 X10*6/uL (4.20-5.50); Red Cell Distribution Width 13.8 % (11.0-16.0); White Blood Count 8.2 X10*3/uL (4.8-10.8)
[2021-06-21 14:28] LABS: Glucose 1 Hour PP 50gm Dose 153 mg/dL (60-140)
[2021-06-21 14:34] LABS: Alanine Aminotransferase 10 U/L (0-31); Aspartate Amino Transferase 16 U/L (5-31); Blood Urea Nitrogen 8 mg/dL (9-16); Estimated Glomerular Filt Rate > 60; Uric Acid 3.2 mg/dL (2.4-5.7)
[2021-06-21 14:57] LABS: Syphilis Screen Nonreactive (Nonreactive)
== END 2021-06-21 09:48 | disposition home or self-care (01) ==
LOC: HO.LAB 09:47
PROVIDERS: PCP Internal Medicine; Visit Provider Advanced Practice Midwife
DX: O99.013 Anemia complicating pregnancy, third trimester (principal); D64.9 Anemia, unspecified; O99.513 Diseases of the respiratory system complicating pregnancy, third trimester; J06.9 Acute upper respiratory infection, unspecified; J45.909 Unspecified asthma, uncomplicated; O99.810 Abnormal glucose complicating pregnancy; O09.293 Supervision of pregnancy with other poor reproductive or obstetric history, third trimester; Z3A.32 32 weeks gestation of pregnancy
CPT/HCPCS: 36415; 81003; 82565; 84450; 84460; 84520; 84550; 85027; 86780; 99212

== ENCOUNTER → 2021-07-10 12:57 | Outpatient (BNVA) | payer OTHER, SELFPAY | PROVIDERS: PCP Internal Medicine; Visit Provider Obstetrics & Gynecology | DX: Z34.83 Encounter for supervision of other normal pregnancy, third trimester (principal); Z3A.34 34 weeks gestation of pregnancy | CPT/HCPCS: 99212 ==

== ENCOUNTER 2021-07-11 08:50 | Outpatient (REF) | payer OTHER, SELFPAY ==
[2021-07-11 10:59] LABS: Glucose Fasting 86 mg/dL (60-99)
[2021-07-11 11:03] LABS: Glucose 1 Hour 158 mg/dL
[2021-07-11 12:56] LABS: Glucose 2 Hour 184 mg/dL
[2021-07-11 13:19] LABS: Glucose 3 Hour 144 mg/dL
== END 2021-07-11 08:51 | disposition home or self-care (01) ==
LOC: HO.LAB 08:50
PROVIDERS: PCP Internal Medicine; Visit Provider Advanced Practice Midwife
DX: O99.810 Abnormal glucose complicating pregnancy (principal)
CPT/HCPCS: 36415; 82951

== ENCOUNTER → 2021-07-14 09:49 | Outpatient (BNVA) | payer OTHER, SELFPAY | PROVIDERS: PCP Internal Medicine; Visit Provider Advanced Practice Midwife ==

== ENCOUNTER 2021-07-21 14:08 | Outpatient (REF) | payer OTHER, SELFPAY ==
[2021-07-22 14:39] LABS: CT PCR NOT DETECTED (Not Detect.); NG PCR NOT DETECTED (Not Detect.)
== END 2021-07-21 14:09 | disposition home or self-care (01) ==
LOC: HO.LAB 14:08
PROVIDERS: PCP Internal Medicine; Visit Provider Advanced Practice Midwife
DX: O24.419 Gestational diabetes mellitus in pregnancy, unspecified control (principal); Z3A.36 36 weeks gestation of pregnancy
CPT/HCPCS: 81003; 87081; 87491; 87591; 99212

== ENCOUNTER 2021-07-21 15:31 | Outpatient (REF) | payer OTHER, SELFPAY ==
--- NOTE | ~2021-07-21 | US_ITS ---
EXAMINATION: OBSTETRICAL ULTRASOUND, Follow up HISTORY: 36-year-old at 36.4 weeks of gestation Size date discrepancy AMA COMPARISON: 03/24/2021 TECHNIQUE: Real time transabdominal imaging with color and M-mode Doppler. PRESENTATION: Vertex PLACENTA LOCATION: Anterior without previa AMNIOTIC FLUID: Normal MEASUREMENTS: 1. Biparietal Diameter: 8.2 cm; 33.1 wks 2. Head Circumference: 32.2 cm; 36.3 wks 3. Abdominal Circumference: 30.4 cm; 12.3 wks 4. Femur Length: 6.8 cm; 25.1 wks 5. Heart Rate: 147 beats per minute WEIGHT: EFW: 2472 grams (5 lbs 7 oz) -- 11 %. BIOPHYSICAL PROFILE: Motion: 2 Tone: 2 Breathin Amniotic Fluid: 2 Total score: 8/8 UA Doppler: S/D 2.4 GESTATIONAL AGE: 1. Established GA: 36.4 wks 2. GA from AUA: 34.6 wks ESTIMATED DATE OF DELIVERY: 1. Established JASSON: 08/14/2021 2. JASSON from AUA: 08/26/2021 US/US OB velocimetry umbilical ar IMPRESSION: 1. A single active fetus is in vertex presentation 2. Size equals dates, EFW corresponds to 11 percentile. 3. Reassuring biophysical profile 4. Normal UA Doppler I reviewed today's findings and discussed the limitations of ultrasound and estimating weights. The EFW of 11 percentile is suggestive of less than expected interval growth. However, there were no other ultrasound suggestion of placental insufficiency. She is doing well on GDM diet. Patient reports that the fetus is active. The weight of her child was born at term is approximately 7 pounds. I recommended that she is to return in one week for a repeat the BPP, Doppler evaluation. She should also start weekly NST. A repeat growth evaluation should be scheduled in 2 weeks. Thank you very much for this referral. Total time 30 minutes. The time spent was devoted to counseling the patient about the disease and diagnosis, coordinating care including reviewing her records, pertinent lab data and studies, as well as discussing diagnostic evaluation and workup, plan therapeutic interventions and future disposition of care. This includes any additional research needed to obtain further information in formulating the plan of care of this patient. This note was generated with a voice recognition program. Please excuse any errors which may have been overlooked during my review of this note. Sometimes these errors may affect the content or meaning of a given sentence.
== END 2021-07-21 15:32 | disposition home or self-care (01) ==
LOC: HO.US 15:31
PROVIDERS: PCP Internal Medicine; Visit Provider Advanced Practice Midwife
DX: O24.419 Gestational diabetes mellitus in pregnancy, unspecified control (principal); O09.513 Supervision of elderly primigravida, third trimester; Z3A.36 36 weeks gestation of pregnancy
CPT/HCPCS: 76816; 76820

== ENCOUNTER → 2021-07-24 15:04 | Outpatient (BNVA) | payer OTHER, SELFPAY | PROVIDERS: PCP Internal Medicine; Visit Provider Obstetrics & Gynecology | DX: O24.410 Gestational diabetes mellitus in pregnancy, diet controlled (principal); O99.013 Anemia complicating pregnancy, third trimester; D64.9 Anemia, unspecified; Z03.74 Encounter for suspected problem with fetal growth ruled out; Z3A.36 36 weeks gestation of pregnancy | CPT/HCPCS: 81003; 99212 ==

== ENCOUNTER → 2021-07-25 15:13 | Outpatient (BNVA) | payer OTHER, SELFPAY | PROVIDERS: PCP Internal Medicine; Visit Provider Obstetrics & Gynecology ==

== ENCOUNTER → 2021-07-26 08:29 | Outpatient (BNVA) | payer OTHER, SELFPAY | PROVIDERS: PCP Internal Medicine; Visit Provider Obstetrics & Gynecology | DX: O09.523 Supervision of elderly multigravida, third trimester (principal); O24.410 Gestational diabetes mellitus in pregnancy, diet controlled; O99.513 Diseases of the respiratory system complicating pregnancy, third trimester; J45.909 Unspecified asthma, uncomplicated; Z3A.36 36 weeks gestation of pregnancy; Z87.59 Personal history of other complications of pregnancy, childbirth and the puerperium; Z98.82 Breast implant status; Z88.6 Allergy status to analgesic agent; Z91.013 Allergy to seafood; Z79.899 Other long term (current) drug therapy | CPT/HCPCS: 59025; 99212 ==

== ENCOUNTER 2021-07-26 15:53 | Emergency (ER) | payer OTHER, SELFPAY ==
[2021-07-26 16:36] VITALS: BP 108/64; PULSE 93; RESP 20; TEMP 36.6; O2SAT 100; BMI 28.9
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
[2021-07-26 17:43] LABS: Influenza A PCR NEGATIVE (Negative); Influenza B PCR NEGATIVE (Negative); Resp Syncy Virus RNA Qual PCR NEGATIVE (Negative); SARS COV2 PCR INHOUSE NEGATIVE (Negative)
== END 2021-07-26 18:11 | disposition home or self-care (01) ==
PROVIDERS: Physician Assistant; Emergency Provider Internal Medicine; PCP Internal Medicine
DX: O99.513 Diseases of the respiratory system complicating pregnancy, third trimester (principal); J45.909 Unspecified asthma, uncomplicated; Z3A.39 39 weeks gestation of pregnancy; Z20.822 Contact with and (suspected) exposure to COVID-19
CPT/HCPCS: 0241U; 36415; 99283

== ENCOUNTER 2021-07-28 10:03 | Outpatient (REF) | payer OTHER, SELFPAY ==
--- NOTE | ~2021-07-28 | US_ITS ---
EXAMINATION: OBSTETRICAL ULTRASOUND, Follow up HISTORY: 36-year-old at 37.4 weeks of gestation AMA Small for gestational age GDM on diet COMPARISON: 07/21/2021 TECHNIQUE: Real time transabdominal imaging with color and M-mode Doppler. PRESENTATION: Vertex PLACENTA LOCATION: Anterior without previa AMNIOTIC FLUID: Within normal limits, CONSUELO 9.4 cm BIOPHYSICAL PROFILE: Motion: 2 Tone: 2 Breathin Amniotic Fluid: 2 Total score: 8/8 UA Doppler showed SD ratio of 2.8. GESTATIONAL AGE: 1. Established GA: 37.4 wks 2. GA from AUA: N/A wks ESTIMATED DATE OF DELIVERY: 1. Established JASSON: 08/14/2021 2. JASSON from [facility]: N/A US/US OB velocimetry umbilical ar IMPRESSION: 1. A single active fetus is in vertex presentation 2. Reassuring BPP and CONSUELO 3. Normal SD ratio in the umbilical artery I reviewed today's ultrasound findings and reassured her that there has been appropriate interval growth. EFW is still corresponds to 11 percentile. However the testing is reassuring. The SD ratio in the umbilical artery is also within normal range. She informs me that her fasting value this morning was 85. Her postprandial values are less than 110. Given the appropriate interval growth and reassuring testing, expectant management until 39-40 weeks is suggested. Thank you very much for this referral. Total time 30 minutes. The time spent was devoted to counseling the patient about the disease and diagnosis, coordinating care including reviewing her records, pertinent lab data and studies, as well as discussing diagnostic evaluation and workup, plan therapeutic interventions and future disposition of care. This includes any additional research needed to obtain further information in formulating the plan of care of this patient. This note was generated with a voice recognition program. Please excuse any errors which may have been overlooked during my review of this note. Sometimes these errors may affect the content or meaning of a given sentence.
--- NOTE | ~2021-07-28 | US_ITS ---
EXAMINATION: OBSTETRICAL ULTRASOUND, Follow up HISTORY: 36-year-old at 37.4 weeks of gestation AMA Small for gestational age GDM on diet COMPARISON: 07/21/2021 TECHNIQUE: Real time transabdominal imaging with color and M-mode Doppler. PRESENTATION: Vertex PLACENTA LOCATION: Anterior without previa AMNIOTIC FLUID: Within normal limits, CONSUELO 9.4 cm BIOPHYSICAL PROFILE: Motion: 2 Tone: 2 Breathin Amniotic Fluid: 2 Total score: 8/8 UA Doppler showed SD ratio of 2.8. GESTATIONAL AGE: 1. Established GA: 37.4 wks 2. GA from AUA: N/A wks ESTIMATED DATE OF DELIVERY: 1. Established JASSON: 08/14/2021 2. JASSON from [facility]: N/A US/US OB biophysical profile IMPRESSION: 1. A single active fetus is in vertex presentation 2. Reassuring BPP and CONSUELO 3. Normal SD ratio in the umbilical artery I reviewed today's ultrasound findings and reassured her that there has been appropriate interval growth. EFW is still corresponds to 11 percentile. However the testing is reassuring. The SD ratio in the umbilical artery is also within normal range. She informs me that her fasting value this morning was 85. Her postprandial values are less than 110. Given the appropriate interval growth and reassuring testing, expectant management until 39-40 weeks is suggested. Thank you very much for this referral. Total time 30 minutes. The time spent was devoted to counseling the patient about the disease and diagnosis, coordinating care including reviewing her records, pertinent lab data and studies, as well as discussing diagnostic evaluation and workup, plan therapeutic interventions and future disposition of care. This includes any additional research needed to obtain further information in formulating the plan of care of this patient. This note was generated with a voice recognition program. Please excuse any errors which may have been overlooked during my review of this note. Sometimes these errors may affect the content or meaning of a given sentence.
== END 2021-07-28 10:04 | disposition home or self-care (01) ==
LOC: HO.US 10:03
PROVIDERS: PCP Internal Medicine; Visit Provider Advanced Practice Midwife
DX: O24.419 Gestational diabetes mellitus in pregnancy, unspecified control (principal)
CPT/HCPCS: 76819; 76820

== ENCOUNTER 2021-07-31 14:59 | Outpatient (REF) | payer OTHER, SELFPAY | END 2021-07-31 15:00 | disposition home or self-care (01) | LOC: HO.LAB 14:59 | PROVIDERS: PCP Internal Medicine; Visit Provider Internal Medicine | DX: Z20.822 Contact with and (suspected) exposure to COVID-19 (principal) | CPT/HCPCS: C9803; U0003; U0005 ==

== ENCOUNTER → 2021-08-01 10:07 | Outpatient (BNVA) | payer OTHER, SELFPAY | PROVIDERS: PCP Internal Medicine; Visit Provider Obstetrics & Gynecology | DX: O24.419 Gestational diabetes mellitus in pregnancy, unspecified control (principal); Z3A.37 37 weeks gestation of pregnancy | CPT/HCPCS: 59025; 99212 ==

== ENCOUNTER 2021-08-04 10:55 | Outpatient (REF) | payer OTHER, SELFPAY ==
--- NOTE | ~2021-08-04 | US_ITS ---
EXAMINATION: OBSTETRICAL ULTRASOUND, Follow up HISTORY: A 36-year-old at that 38.4 weeks of gestation growth restriction GDM on diet AMA COMPARISON: 07/28/2021 TECHNIQUE: Real time transabdominal imaging with color and M-mode Doppler. PRESENTATION: Vertex PLACENTA LOCATION: Anterior without previa AMNIOTIC FLUID: CONSUELO 7.5 cm MEASUREMENTS: 1. Biparietal Diameter: 8.6 cm; 34.5 wks 2. Head Circumference: 32.3 cm; 36.4 wks 3. Abdominal Circumference: 31.5 cm; 35.3 wks 4. Femur Length: 6.9 cm; 35.3 wks 5. Heart Rate: 136 beats per minute WEIGHT: EFW: 2672 grams (5 lbs 14 oz) -- 6 %. BIOPHYSICAL PROFILE: Motion: 2 Tone: 2 Breathin Amniotic Fluid: 2 Total score: 8/8 UA Doppler: S/D 2.2 GESTATIONAL AGE: 1. Established GA: 38.4 wks 2. GA from AUA: 35.4 wks ESTIMATED DATE OF DELIVERY: 1. Established JASSON: 08/14/2021 2. JASSON from A[facility]: 09/04/2021 US/US OB velocimetry umbilical ar IMPRESSION: 1. A single active fetus is in vertex presentation 2. Size less than dates, EFW corresponds to 6th percentile. Compared to prior exam, there has been less than expected interval growth. 3. Reassuring biophysical profile with normal amniotic fluid index. 4. Normal SD in umbilical artery. I reviewed today's findings and discussed the limitations of ultrasound and estimating weights. Although there appears to have been less than expected interval growth, normal biophysical profile and CONSUELO are reassuring. She informs me that her glycemic control has been excellent on diet. Agree with the plan for induction of labor between 39 and 40 weeks. Thank you very much for this referral. Total time 30 minutes. The time spent was devoted to counseling the patient about the disease and diagnosis, coordinating care including reviewing her records, pertinent lab data and studies, as well as discussing diagnostic evaluation and workup, plan therapeutic interventions and future disposition of care. This includes any additional research needed to obtain further information in formulating the plan of care of this patient. This note was generated with a voice recognition program. Please excuse any errors which may have been overlooked during my review of this note. Sometimes these errors may affect the content or meaning of a given sentence.
== END 2021-08-04 10:56 | disposition home or self-care (01) ==
LOC: HO.US 10:55
PROVIDERS: PCP Internal Medicine; Visit Provider Advanced Practice Midwife
DX: O24.419 Gestational diabetes mellitus in pregnancy, unspecified control (principal)
CPT/HCPCS: 76816; 76820

== ENCOUNTER 2021-08-08 12:56 | Outpatient (REF) | payer OTHER, SELFPAY ==
--- NOTE | ~2021-08-08 | US_ITS ---
EXAMINATION: US OBSTETRICAL (BIOPHYSICAL PROFILE) CLINICAL INFORMATION: Gestational diabetes. COMPARISON: Ultrasound OB 08/04/2021 TECHNIQUE: Ultrasound of the pelvis is performed. Biophysical profile is performed over 30 minutes with assessment of breathing, gross body movement, tone, and qualitative amniotic fluid volume. Each matrix is scored 0 or 2, depending if the metric is present. Maximum total score possible is 8. Examination is not intended to assess for anomalies. FINDINGS: POSITION: Cephalic PLACENTA: Anterior AMNIOTIC FLUID INDEX: 15.0 cm CARDIAC ACTIVITY: 160 beats per minute BIOPHYSICAL PROFILE: Motion: 2 Tone: 2 Breathin Amniotic Fluid: 2 Total score: 8 US/US OB biophysical profile IMPRESSION: 1. Single intrauterine gestation in cephalic position with anterior placenta. 2. Total biophysical score is 8/8 (scale 0-8). 3. Amniotic fluid index 15.0 cm. 4. cardiac activity 160 beats per minute. 5. Normal activity noted.
== END 2021-08-08 12:57 | disposition home or self-care (01) ==
LOC: HO.US 12:56
PROVIDERS: PCP Internal Medicine; Visit Provider Obstetrics & Gynecology
DX: O09.523 Supervision of elderly multigravida, third trimester (principal); O24.419 Gestational diabetes mellitus in pregnancy, unspecified control; Z3A.38 38 weeks gestation of pregnancy
CPT/HCPCS: 59025; 76819; 99212

== ENCOUNTER → 2021-08-15 13:03 | Outpatient (BNVA) | payer OTHER, SELFPAY | PROVIDERS: PCP Internal Medicine; Visit Provider Advanced Practice Midwife | DX: Z39.1 Encounter for care and examination of lactating mother (principal); R10.2 Pelvic and perineal pain; K64.9 Unspecified hemorrhoids | CPT/HCPCS: 99212 ==

== ENCOUNTER → 2021-08-23 15:00 | Outpatient (BNVA) | payer OTHER, SELFPAY | PROVIDERS: PCP Internal Medicine; Visit Provider Advanced Practice Midwife | DX: O48.0 Post-term pregnancy (principal); O22.43 Hemorrhoids in pregnancy, third trimester; O26.893 Other specified pregnancy related conditions, third trimester; N75.0 Cyst of Bartholin's gland; Z3A.41 41 weeks gestation of pregnancy | CPT/HCPCS: 99212 ==

== ENCOUNTER → 2021-08-28 11:36 | Outpatient (BNVA) | payer OTHER, SELFPAY | PROVIDERS: PCP Internal Medicine; Visit Provider Advanced Practice Midwife | DX: N75.0 Cyst of Bartholin's gland (principal) | CPT/HCPCS: 99212 ==

== ENCOUNTER 2021-10-16 10:55 | Outpatient (REF) | payer OTHER, SELFPAY ==
[2021-10-18 20:37] LABS: HPV mRNA E6/E7 rflx Not Detected (Not Detected)
== END 2021-10-16 10:56 | disposition home or self-care (01) ==
LOC: HO.LAB 10:55
PROVIDERS: PCP Internal Medicine; Visit Provider Advanced Practice Midwife
DX: Z12.4 Encounter for screening for malignant neoplasm of cervix (principal); Z11.51 Encounter for screening for human papillomavirus (HPV); N75.0 Cyst of Bartholin's gland; Z98.82 Breast implant status
CPT/HCPCS: 87624; 88142; 99212

== ENCOUNTER 2021-12-07 14:01 | Emergency (ER) | payer OTHER, SELFPAY ==
--- NOTE | ~2021-12-07 | US_ITS ---
EXAMINATION: US VENOUS ULTRASOUND WITH DOPPLER LOWER EXTREMITY, BILATERAL CLINICAL INFORMATION: Leg pain, positive D dimer COMPARISON: None TECHNIQUE: Ultrasound of the deep veins is performed from the hip to the calf with compression sonography and color and pulse Doppler assessment. Spectral analysis with color-flow imaging is performed. FINDINGS: RIGHT: There is normal venous compression and respiratory variation and augmented flow. The visualized common femoral vein, superficial femoral vein, profunda femoral vein, popliteal vein, and the trifurcation region shows no evidence of deep venous thrombosis. There is no significant popliteal fossa cyst. LEFT: There is normal venous compression and respiratory variation and augmented flow. The visualized common femoral vein, superficial femoral vein, profunda femoral vein, popliteal vein, and the trifurcation region shows no evidence of deep venous thrombosis. There is no significant popliteal fossa cyst. If the patient's symptoms persist, followup ultrasound in 5 days 7 days might be of value to exclude proximal propagation from a non-visualized calf vein. US/US venous duplex LE BI IMPRESSION: No DVT demonstrated in the bilateral lower extremity.
[2021-12-07 14:45] VITALS: BP 130/62; PULSE 72; RESP 18; TEMP 36.9; O2SAT 100; BMI 25.0
[2021-12-07 16:45] LABS: MANUAL DIFF FLAG NO
[2021-12-07 16:47] LABS: Basophils Percent Auto 0.3 % (0-2); Eosinophils Absolute Auto 0.1 X10*3/uL (0.0-0.4); Eosinophils Percent Auto 0.8 % (0-4); Hematocrit 36.9 % (37.0-47.0); Hemoglobin 11.9 g/dl (12.0-16.0); Imm Gran Abs Auto 0.01 X10*3/uL (0.00-0.03); Imm Gran Pct Auto 0.1 % (0.0-0.4); Lymphocytes Absolute Auto 2.6 X10*3/uL (1.2-4.9); Lymphocytes Percent Auto 37.1 % (20-40); Mean Corpuscular HGB Conc 32.2 g/dl (31.0-35.0); Mean Corpuscular Hemoglobin 25.9 pg (27.0-33.0); Mean Corpuscular Volume 80.2 fL (80.0-98.0); Mean Platelet Volume 9.9 fL (9.4-12.3); Monocytes Absolute Auto 0.6 X10*3/uL (0.1-1.2); Monocytes Percent Auto 8.8 % (2-11); Neutrophils Absolute Auto 3.7 x10*3/uL (2.0-8.3); Neutrophils Percent Auto 52.9 % (45-73); Platelet Count 269 X10*3/uL (160-400); Red Cell Distribution Width 14.9 % (11.0-16.0); White Blood Count 7.1 X10*3/uL (4.8-10.8)
[2021-12-07 17:00] LABS: D Dimer High Sensitivity 286 NG/ML
[2021-12-07 17:01] LABS: Anion Gap 13 (12-20); Blood Urea Nitrogen 16 mg/dL (9-16); Calcium 9.9 mg/dL (8.4-10.2); Carbon Dioxide 24 mmol/L (22-29); Chloride 106 mmol/L (96-108); Creatinine Clr Calc Pharmacy 80.5; Estimated Glomerular Filt Rate > 60; Glucose Random 83 mg/dL (60-115); Sodium 139 mmol/L (135-145)
[2021-12-07 19:02] VITALS: BP 126/77; PULSE 64; RESP 16; TEMP 36.6; O2SAT 98
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
[2021-12-07 20:48] VITALS: BP 118/78; PULSE 80; RESP 18; O2SAT 98
== END 2021-12-07 20:49 | disposition home or self-care (01) ==
PROVIDERS: Emergency Provider Emergency Medicine; PCP Internal Medicine
DX: M79.662 Pain in left lower leg (principal); M79.661 Pain in right lower leg; R53.83 Other fatigue
CPT/HCPCS: 36415; 80048; 85025; 85379; 93970; 99283; 99284

== ENCOUNTER 2022-06-13 18:33 | Emergency (ER) | payer OTHER, SELFPAY ==
[2022-06-13 18:42] VITALS: BP 148/98; PULSE 74; O2SAT 100
== END 2022-06-13 22:38 | disposition left against medical advice (07) ==
PROVIDERS: Emergency Provider Emergency Medicine
DX: S89.92XA Unspecified injury of left lower leg, initial encounter (principal); W10.8XXA Fall (on) (from) other stairs and steps, initial encounter; Y93.9 Activity, unspecified; Y92.018 Other place in single-family (private) house as the place of occurrence of the external cause; Y99.9 Unspecified external cause status

== ENCOUNTER 2022-06-15 14:49 | Emergency (ER) | payer OTHER, SELFPAY ==
--- NOTE | ~2022-06-15 | CT_ITS ---
CT head/brain wo IV con CLINICAL INFORMATION: Reason for Exam dizzy, trouble finding words COMPARISON: Prior CT 10/14/2019 TECHNIQUE: Department standard protocol. This CT examination was performed using dose optimization techniques as appropriate, variously including the following: *Automated exposure control *Adjustment of mA and/or kV according to patient size (this includes techniques or standardized protocols for targeted exams where dose is matched to indication/reason for exam; i.e. extremities or head) *Use of iterative reconstruction technique DLP: 627 mGy-cm FINDINGS: CEREBRAL HEMISPHERES: There is no evidence of intra-axial or extra-axial mass, hemorrhage or acute infarct. BRAIN PARENCHYMA: Normal wesley-white matter differentiation. SUBDURAL SPACE: No bleed. BASAL GANGLIA AND PINEAL GLAND: Unremarkable VENTRICLES: Symmetric and normal in size. CEREBELLUM AND BRAINSTEM: No space-occupying mass, hemorrhage or acute infarct. CEREBELLOPONTINE ANGLES: No lesion found. ORBITS: No intraorbital mass. VESSELS: Unremarkable SKULL BASE: Unremarkable INCLUDED SINUSES AT SKULL BASE: Clear SKULL AND SKIN: Small osseous hypodense structure protruding from the frontal bone toward the subdural space probably calcified meningioma measure about 4 mm this has not changed from prior CT scan 10/14/2019. CT/CT head/brain wo IV con IMPRESSION: No CT evidence of intracranial space-occupying mass, bleed or infarct. Dural based Calcified 4 mm structure in the right frontal subdural space likely calcified meningioma or internal small osteoma unchanged.
[2022-06-15 14:53] VITALS: BP 129/90; PULSE 73; RESP 18; TEMP 37.2; O2SAT 99; BMI 26.2
--- NOTE | 2022-06-15 14:56 | ECG_ITS ---
Test Reason : DIZZY Blood Pressure : / mmHG Vent. Rate : 070 BPM Atrial Rate : 070 BPM P-R Int : 162 ms QRS Dur : 106 ms QT Int : 384 ms P-R-T Axes : 057 240 051 degrees QTc Int : 414 ms Normal sinus rhythm Right superior axis deviation Incomplete right bundle branch block Abnormal ECG When compared with ECG of 12-NOV-2010 00:01, No significant change was found Referred By: Generic ED Physician Electronically Signed By:JOSSUE WOODS
[2022-06-15 15:08] LABS: MANUAL DIFF FLAG NO
[2022-06-15 15:09] LABS: Basophils Percent Auto 0.3 % (0-2); Eosinophils Percent Auto 0.4 % (0-4); Hematocrit 36.9 % (37.0-47.0); Hemoglobin 11.6 g/dl (12.0-16.0); Imm Gran Abs Auto 0.02 X10*3/uL (0.00-0.03); Imm Gran Pct Auto 0.3 % (0.0-0.4); Lymphocytes Absolute Auto 1.9 X10*3/uL (1.2-4.9); Lymphocytes Percent Auto 25.6 % (20-40); Mean Corpuscular HGB Conc 31.4 g/dl (31.0-35.0); Mean Corpuscular Hemoglobin 25.4 pg (27.0-33.0); Mean Corpuscular Volume 80.9 fL (80.0-98.0); Mean Platelet Volume 10.8 fL (9.4-12.3); Monocytes Absolute Auto 0.6 X10*3/uL (0.1-1.2); Monocytes Percent Auto 7.7 % (2-11); Neutrophils Percent Auto 65.7 % (45-73); Platelet Count 225 X10*3/uL (160-400); Red Blood Count 4.56 X10*6/uL (4.20-5.50); Red Cell Distribution Width 14.6 % (11.0-16.0); White Blood Count 7.5 X10*3/uL (4.8-10.8)
[2022-06-15 15:26] LABS: Alanine Aminotransferase 9 U/L (0-31); Albumin Level 3.9 g/dL (3.5-5.0); Alkaline Phosphatase 58 U/L (39-117); Anion Gap 14 (12-20); Aspartate Amino Transferase 14 U/L (5-31); Bilirubin Direct 0.2 mg/dL (0.0-0.5); Bilirubin Total 0.4 mg/dL (0.0-1.0); Blood Urea Nitrogen 15 mg/dL (9-16); Carbon Dioxide 23 mmol/L (22-29); Chloride 104 mmol/L (96-108); Creatinine Clr Calc Pharmacy 77.1; Estimated Glomerular Filt Rate > 60; Glucose Random 90 mg/dL (60-115); Lipase 18 U/L (8-78); Potassium 4.3 mmol/L (3.3-5.1); Sodium 137 mmol/L (135-145)
[2022-06-15 15:32] LABS: Troponin-I High Sensitivity < 3.5 ng/L (<3.5-17.0)
[2022-06-15 17:03] VITALS: BP 113/69; PULSE 65; RESP 16; TEMP 37.1; O2SAT 100
[2022-06-15 18:00] VITALS: BP 127/74; PULSE 68; RESP 16; TEMP 37.2; O2SAT 98
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
[2022-06-15 18:48] LABS: Appearance Urine Clear; Color Urine Yellow; Glucose Urine UA Negative (Negative); Leukocyte Esterase Urine Small (1+) (Negative); Nitrite Urine Negative (Negative); UMIC TRIGGER UACC YES; UPreg QC Valid YES; Urine Blood Small (1+) (Negative); Urine Ketones Trace mg/dL (Negative); Urine Pregnancy NEGATIVE (NEGATIVE); Urine Protein Negative (Neg-Trace)
[2022-06-15 18:55] LABS: Bacteria Urine None Seen (None Seen); Hyaline Casts Urine 0-2 /LPF (0-2); RBC Urine 0-2 /HPF (0-2); Squamous Epithelial Cell Urine 0-2 /HPF (0-2); UACC Culture Trigger YES; WBC Urine 0-5 /HPF (0-5)
[2022-06-15 19:07] LABS: COVID-19 Test Negative (Negative); IDNOW Serial# 9DB6401D
[2022-06-15 20:00] VITALS: BP 108/84; PULSE 68; RESP 18; TEMP 36.9; O2SAT 98
[2022-06-15] MEDS: Nitrofurantoin Monohyd/M-Cryst 100 MG CAPSULE PO (20:23)
== END 2022-06-15 20:30 | disposition home or self-care (01) ==
PROVIDERS: Nurse Practitioner Family; Emergency Provider Emergency Medicine; PCP Internal Medicine
DX: N39.0 Urinary tract infection, site not specified (principal); R42 Dizziness and giddiness; R11.0 Nausea; Z20.822 Contact with and (suspected) exposure to COVID-19; Z79.899 Other long term (current) drug therapy
CPT/HCPCS: 36415; 70450; 80053; 81001; 81025; 82248; 83690; 84484; 85025; 87086; 87088; 87635; 93005; 99284

== ENCOUNTER 2023-01-03 12:30 | Outpatient (REF) | payer OTHER, SELFPAY ==
[2023-01-03 12:42] LABS: MANUAL DIFF FLAG NO
[2023-01-03 12:48] LABS: Basophils Percent Auto 0.4 % (0-2); Eosinophils Absolute Auto 0.1 X10*3/uL (0.0-0.4); Eosinophils Percent Auto 1.1 % (0-4); Hematocrit 39.3 % (37.0-47.0); Hemoglobin 12.4 g/dl (12.0-16.0); Imm Gran Abs Auto 0.01 X10*3/uL (0.00-0.03); Imm Gran Pct Auto 0.2 % (0.0-0.4); Lymphocytes Absolute Auto 2.2 X10*3/uL (1.2-4.9); Lymphocytes Percent Auto 42.5 % (20-40); Mean Corpuscular HGB Conc 31.6 g/dl (31.0-35.0); Mean Corpuscular Hemoglobin 26.4 pg (27.0-33.0); Mean Corpuscular Volume 83.8 fL (80.0-98.0); Mean Platelet Volume 10.7 fL (9.4-12.3); Monocytes Absolute Auto 0.4 X10*3/uL (0.1-1.2); Neutrophils Absolute Auto 2.6 x10*3/uL (2.0-8.3); Neutrophils Percent Auto 48.8 % (45-73); Platelet Count 261 X10*3/uL (160-400); Red Blood Count 4.69 X10*6/uL (4.20-5.50); Red Cell Distribution Width 13.5 % (11.0-16.0); White Blood Count 5.3 X10*3/uL (4.8-10.8)
[2023-01-03 13:28] LABS: Erythrocyte Sedimentation Rate 7 MM/HR (0-20)
[2023-01-03 13:29] LABS: Alanine Aminotransferase 9 U/L (0-31); Albumin Level 4.1 g/dL (3.5-5.0); Alkaline Phosphatase 59 U/L (39-117); Anion Gap 12 (12-20); Aspartate Amino Transferase 15 U/L (5-31); Bilirubin Total 0.5 mg/dL (0.0-1.0); Blood Urea Nitrogen 16 mg/dL (9-16); C Reactive Protein 0.13 mg/dL (< or = 0.50); Calcium 9.4 mg/dL (8.4-10.2); Carbon Dioxide 26 mmol/L (22-29); Chloride 107 mmol/L (96-108); Estimated Glomerular Filt Rate > 60; Glucose Random 95 mg/dL (60-115); Potassium 4.4 mmol/L (3.3-5.1); Sodium 141 mmol/L (135-145)
[2023-01-03 13:44] LABS: Thyroid Stimulating Hormone 1.53 uIU/mL (0.32-4.0); Vitamin D 25-OH Total 27.2 ng/mL (>30)
== END 2023-01-03 12:31 | disposition home or self-care (01) ==
LOC: HO.LAB 12:30
PROVIDERS: PCP Internal Medicine; Visit Provider Internal Medicine
DX: G44.039 Episodic paroxysmal hemicrania, not intractable (principal)
CPT/HCPCS: 36415; 80053; 82306; 84443; 85025; 85652; 86140

== ENCOUNTER 2023-02-28 08:52 | Outpatient (REF) | payer OTHER, SELFPAY ==
[2023-03-01 01:16] LABS: CT PCR NOT DETECTED (Not Detect.); NG PCR NOT DETECTED (Not Detect.)
[2023-03-01 09:32] LABS: BV Int Neg Control Negative (Negative); BV Int Pos Control Positive (Positive)
[2023-03-05 07:43] LABS: HPV mRNA E6/E7 rflx Not Detected (Not Detected)
== END 2023-02-28 08:53 | disposition home or self-care (01) ==
LOC: HO.LNP 08:52
PROVIDERS: PCP Internal Medicine; Visit Provider Advanced Practice Midwife
DX: Z01.419 Encounter for gynecological examination (general) (routine) without abnormal findings (principal); N85.2 Hypertrophy of uterus; N92.0 Excessive and frequent menstruation with regular cycle; R51.9 Headache, unspecified; Z79.899 Other long term (current) drug therapy; Z98.82 Breast implant status
CPT/HCPCS: 0353U; 87480; 87510; 87624; 87660; 88142

== ENCOUNTER 2023-03-06 14:59 | Outpatient (REF) | payer OTHER, SELFPAY ==
--- NOTE | ~2023-03-06 | US_ITS ---
EXAMINATION: US PELVIS CLINICAL INFORMATION: Menorrhagia COMPARISON: Previous pelvic ultrasound March 2020 TECHNIQUE: Ultrasound of the pelvis is performed using both transabdominal and transvaginal transducers along with Doppler. Transvaginal imaging is performed due to inadequate visualization transabdominally. FINDINGS: The uterus is anteverted and anteflexed and measures 8.5 x 4.8 x 6.1 cm in dimension. Endometrial thickness measures 0.7 cm. The endometrium is slightly heterogeneous appearing. No focal uterine lesion. Trace fluid in the endocervical canal. The ovaries are normal. The right ovary measures 2.2 x 1.7 x 1.9 cm. Left ovary measures 2.2 x 1.4 x 1.4 cm. There is no fluid in the pelvis. There are prominent adnexal vessels, left greater than right. Appearance is questionable for pelvic congestion. US/US pelvic and transvaginal IMPRESSION: Slightly heterogeneous-appearing endometrium. The endometrium is normal in thickness. Prominent pelvic vessels, particularly on the left. Appearance is questionable for pelvic congestion.
[2023-03-06 16:42] LABS: Hematocrit 39.3 % (37.0-47.0); Hemoglobin 12.7 g/dl (12.0-16.0); Mean Corpuscular HGB Conc 32.3 g/dl (31.0-35.0); Mean Corpuscular Hemoglobin 27.1 pg (27.0-33.0); Mean Platelet Volume 11.3 fL (9.4-12.3); Platelet Count 298 X10*3/uL (160-400); Red Blood Count 4.68 X10*6/uL (4.20-5.50); Red Cell Distribution Width 13.7 % (11.0-16.0); White Blood Count 6.7 X10*3/uL (4.8-10.8)
[2023-03-06 17:23] LABS: Thyroid Stimulating Hormone 1.36 uIU/mL (0.32-4.0)
== END 2023-03-06 15:00 | disposition home or self-care (01) ==
LOC: HO.US 14:59
PROVIDERS: PCP Internal Medicine; Visit Provider Advanced Practice Midwife
DX: N85.2 Hypertrophy of uterus (principal); N92.0 Excessive and frequent menstruation with regular cycle; Z98.82 Breast implant status; Z12.4 Encounter for screening for malignant neoplasm of cervix
CPT/HCPCS: 36415; 76830; 76856; 84443; 85027

== ENCOUNTER 2023-03-13 09:25 | Outpatient (REF) | payer OTHER, SELFPAY ==
--- NOTE | ~2023-03-13 | CT_ITS ---
EXAMINATION: CT HEAD WITH/WITHOUT CONTRAST CLINICAL INFORMATION: Meningioma. COMPARISON: CT head 06/15/2022. TECHNIQUE: Contiguous axial imaging was performed from the skull base to vertex before and after the administration of 85 mL of Omnipaque [address] examination was performed using dose optimization techniques as appropriate, variously including the following: *Automated exposure control *Adjustment of mA and/or kV according to patient size (this includes techniques or standardized protocols for targeted exams where dose is matched to indication/reason for exam; i.e. extremities or head) *Use of iterative reconstruction technique DLP: 1418 mGy-cm FINDINGS: There is no abnormal enhancement associated with a focus of dural calcification over the right frontal convexity near midline. The size of this calcification has remained stable when compared to prior imaging is approximately 0.4 cm in diameter. Otherwise no abnormal mass or enhancement visualized elsewhere within the intracranial compartment. No intracranial mass effect or midline shift. Lateral and third ventricles are normal. No hydrocephalus. Saeed-white matter differentiation is preserved and there is no evidence of acute territorial infarct. The calvarium and skull base are intact. Mastoid air cells and middle ear cavities are well aerated. There is a trace volume of fluid within the sphenoid sinus. Otherwise no active paranasal sinus disease. Globes and orbits are grossly symmetric. CT/CT head/brain wo/w IV con IMPRESSION: There is a stable 0.4 cm focus of dural calcification over the right frontal convexity near midline with no associated pathological enhancement on postcontrast images. Otherwise no abnormal intracranial mass or enhancement is visualized elsewhere within the intracranial compartment. There is a trace volume of fluid within the sphenoid sinus. Otherwise no active paranasal sinus disease.
[2023-03-13] MEDS: iohexoL 350 MG/ML 100 ML INFUS..BTL IV (10:23)
== END 2023-03-13 09:26 | disposition home or self-care (01) ==
LOC: HO.CT 09:25
PROVIDERS: PCP Internal Medicine; Visit Provider Psychiatry & Neurology Neurology
DX: D32.9 Benign neoplasm of meninges, unspecified (principal)
CPT/HCPCS: 70470; Q9967

== ENCOUNTER → 2023-03-20 13:14 | Outpatient (BNVA) | payer OTHER, SELFPAY | PROVIDERS: PCP Internal Medicine; Visit Provider Advanced Practice Midwife | DX: N85.2 Hypertrophy of uterus (principal); N92.0 Excessive and frequent menstruation with regular cycle | CPT/HCPCS: 99212 ==

== ENCOUNTER 2023-07-04 13:25 | Outpatient (AMB) | payer OTHER, SELFPAY ==
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
[2023-07-04 13:32] VITALS: BMI 25.2
== END 2023-07-04 14:26 | disposition left against medical advice (07) ==
PROVIDERS: PCP Internal Medicine; Visit Provider Advanced Practice Midwife
DX: N92.0 Excessive and frequent menstruation with regular cycle (principal); Z30.09 Encounter for other general counseling and advice on contraception
CPT/HCPCS: 99213

== ENCOUNTER 2023-07-04 13:25 | Outpatient (REF) | payer OTHER, SELFPAY ==
[2023-07-04 17:34] LABS: CT PCR NOT DETECTED (Not Detect.); NG PCR NOT DETECTED (Not Detect.)
[2023-07-05 11:15] LABS: BV Int Neg Control Negative (Negative); BV Int Pos Control Positive (Positive)
[2023-07-09 06:43] LABS: HPV mRNA E6/E7 rflx Not Detected (Not Detected)
== END 2023-07-04 13:26 | disposition home or self-care (01) ==
LOC: HO.LNP 13:25
PROVIDERS: PCP Internal Medicine; Visit Provider Advanced Practice Midwife
DX: R87.615 Unsatisfactory cytologic smear of cervix (principal); Z12.13 Encounter for screening for malignant neoplasm of small intestine; Z12.4 Encounter for screening for malignant neoplasm of cervix; Z11.3 Encounter for screening for infections with a predominantly sexual mode of transmission; Z20.2 Contact with and (suspected) exposure to infections with a predominantly sexual mode of transmission; Z79.899 Other long term (current) drug therapy
CPT/HCPCS: 0353U; 87480; 87510; 87624; 87660; 88142; 99212

== ENCOUNTER 2023-09-04 07:59 | Outpatient (REF) | payer OTHER, SELFPAY ==
[2023-09-04 12:30] LABS: CT PCR NOT DETECTED (Not Detect.); NG PCR NOT DETECTED (Not Detect.)
[2023-09-05 12:17] LABS: BV Int Neg Control Negative (Negative); BV Int Pos Control Positive (Positive)
== END 2023-09-04 08:00 | disposition home or self-care (01) ==
LOC: HO.LAB 07:59
PROVIDERS: PCP Internal Medicine; Visit Provider Advanced Practice Midwife
DX: N89.8 Other specified noninflammatory disorders of vagina (principal); Z20.2 Contact with and (suspected) exposure to infections with a predominantly sexual mode of transmission; Z11.3 Encounter for screening for infections with a predominantly sexual mode of transmission
CPT/HCPCS: 0353U; 87480; 87510; 87660; 99212

== ENCOUNTER 2023-09-04 07:59 | Outpatient (AMB) | payer OTHER, SELFPAY ==
[2023-09-04 08:09] VITALS: BP 120/84; BMI 25.4
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
== END 2023-09-04 08:31 | disposition home or self-care (01) ==
PROVIDERS: PCP Internal Medicine; Visit Provider Advanced Practice Midwife
DX: N89.8 Other specified noninflammatory disorders of vagina (principal)
CPT/HCPCS: 99213

== ENCOUNTER 2023-09-04 08:32 | Outpatient (REF) | payer OTHER, SELFPAY | END 2023-09-04 08:33 | disposition home or self-care (01) | LOC: HO.LNP 08:32 | PROVIDERS: Visit Provider Advanced Practice Midwife | DX: Z13.89 Encounter for screening for other disorder (principal) ==

== ENCOUNTER 2023-10-04 15:50 | Emergency (ER) | payer OTHER, SELFPAY ==
--- NOTE | ~2023-10-04 | XR_ITS ---
EXAMINATION: XR CHEST CLINICAL INFORMATION: Shortness of breath COMPARISON: Previous chest x-ray May 2021 TECHNIQUE: 2 views of the chest were obtained. FINDINGS: No significant abnormality is noted involving the heart, lungs, mediastinum, bony thorax or soft tissues. XR/XR chest 2V IMPRESSION: Unremarkable examination.
[2023-10-04 16:54] VITALS: BP 133/95; PULSE 101; RESP 18; TEMP 37.3; O2SAT 99; BMI 25.0
[2023-10-04 18:00] VITALS: BP 126/85; PULSE 117; RESP 18; TEMP 38.2; O2SAT 100
[2023-10-04 19:01] LABS: COVID-19 Test Negative (Negative); IDNOW Serial# 16C4AD1C; IDNOW Serial# 55D5AD1C; Influenza A Positive (Negative); Influenza B2 Negative (Negative)
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
[2023-10-04] MEDS: Acetaminophen 325 MG TABLET 650 MG PO (19:51)
[2023-10-04 19:55] VITALS: BP 120/77; PULSE 110; RESP 16; TEMP 37; O2SAT 98
== END 2023-10-04 19:56 | disposition home or self-care (01) ==
PROVIDERS: Emergency Provider Emergency Medicine Emergency Medical Services; PCP Internal Medicine
DX: J10.1 Influenza due to other identified influenza virus with other respiratory manifestations (principal); R06.02 Shortness of breath; J45.909 Unspecified asthma, uncomplicated; Z11.52 Encounter for screening for COVID-19
CPT/HCPCS: 71046; 87502; 87635; 99283

== ENCOUNTER 2024-01-02 12:42 | Outpatient (REF) | payer OTHER, SELFPAY | END 2024-01-02 12:43 | disposition home or self-care (01) | LOC: HO.SH 12:42 | PROVIDERS: Visit Provider Internal Medicine | DX: Z01.118 Encounter for examination of ears and hearing with other abnormal findings (principal); H93.293 Other abnormal auditory perceptions, bilateral | CPT/HCPCS: 92557; 92567 ==

== ENCOUNTER 2024-01-14 07:48 | Outpatient (REF) | payer OTHER, SELFPAY ==
[2024-01-14 08:00] LABS: MANUAL DIFF FLAG NO
[2024-01-14 08:36] LABS: Basophils Percent Auto 0.3 % (0-2); Eosinophils Absolute Auto 0.1 X10*3/uL (0.0-0.4); Hematocrit 35.7 % (37.0-47.0); Hemoglobin 11.8 g/dl (12.0-16.0); Imm Gran Abs Auto 0.01 X10*3/uL (0.00-0.03); Imm Gran Pct Auto 0.2 % (0.0-0.4); Lymphocytes Absolute Auto 2.3 X10*3/uL (1.2-4.9); Lymphocytes Percent Auto 39.4 % (20-40); Mean Corpuscular HGB Conc 33.1 g/dl (31.0-35.0); Mean Corpuscular Hemoglobin 26.9 pg (27.0-33.0); Mean Corpuscular Volume 81.5 fL (80.0-98.0); Mean Platelet Volume 10.8 fL (9.4-12.3); Monocytes Absolute Auto 0.5 X10*3/uL (0.1-1.2); Monocytes Percent Auto 7.9 % (2-11); Neutrophils Percent Auto 51.2 % (45-73); Platelet Count 211 X10*3/uL (160-400); Red Blood Count 4.38 X10*6/uL (4.20-5.50); Red Cell Distribution Width 13.8 % (11.0-16.0); White Blood Count 5.9 X10*3/uL (4.8-10.8)
[2024-01-14 09:30] LABS: Alanine Aminotransferase 14 U/L (0-31); Albumin Level 3.9 g/dL (3.5-5.0); Alkaline Phosphatase 56 U/L (39-117); Anion Gap 13 (12-20); Aspartate Amino Transferase 16 U/L (5-31); Bilirubin Total 0.2 mg/dL (0.0-1.0); Blood Urea Nitrogen 20 mg/dL (9-16); Calcium 9.3 mg/dL (8.4-10.2); Carbon Dioxide 23 mmol/L (22-29); Chloride 106 mmol/L (96-108); Cholesterol 198 mg/dL (<200); Estimated Glomerular Filt Rate > 60; Glucose Fasting 96 mg/dL (60-99); HDL Cholesterol 57 mg/dL (>40); LDL Cholesterol Calculated 118 mg/dL (<100); Potassium 4.1 mmol/L (3.3-5.1); Sodium 138 mmol/L (135-145); Total Protein 7.5 g/dL (6.5-8.0); Triglycerides 117 mg/dL (<150)
[2024-01-14 09:44] LABS: Thyroid Stimulating Hormone 4.03 uIU/mL (0.32-4.0); Vitamin D 25-OH Total 18.1 ng/mL (>30)
== END 2024-01-14 07:49 | disposition home or self-care (01) ==
LOC: HO.LAB 07:48
PROVIDERS: PCP Internal Medicine; Visit Provider Internal Medicine
DX: Z00.00 Encounter for general adult medical examination without abnormal findings (principal); R10.32 Left lower quadrant pain; J45.40 Moderate persistent asthma, uncomplicated; J30.2 Other seasonal allergic rhinitis; G44.039 Episodic paroxysmal hemicrania, not intractable
CPT/HCPCS: 36415; 80053; 80061; 82306; 84443; 85025

== ENCOUNTER 2024-01-20 06:32 | Outpatient (REF) | payer OTHER, SELFPAY ==
--- NOTE | ~2024-01-20 | CT_ITS ---
EXAMINATION: CT ABDOMEN AND PELVIS WITH CONTRAST CLINICAL INFORMATION: Left lower quadrant pain COMPARISON: CT abdomen pelvis 08/26/2012 TECHNIQUE: Multidetector volumetric images were obtained from the superior aspect of the liver through the pubic symphysis following administration 85 mL of Omnipaque 350 intravenous contrast. Sagittal and coronal reformatted images were obtained on the technologist's workstation. Oral contrast: Yes This CT examination was performed using dose optimization techniques as appropriate, variously including the following: *Automated exposure control *Adjustment of mA and/or kV according to patient size (this includes techniques or standardized protocols for targeted exams where dose is matched to indication/reason for exam; i.e. extremities or head) *Use of iterative reconstruction technique DLP: 273 mGy-cm FINDINGS: Visualized lung bases are well aerated. Bilateral breast implants are partially visualized. The liver is normal in size. The gallbladder is normal in appearance. The pancreas, spleen and adrenal glands are unremarkable. Symmetrically enhancing kidneys. No hydronephrosis of either kidney. Mildly distended, debris-filled stomach. Normal caliber loops of small bowel. There is a moderate to severe stool burden throughout the majority of the colon. Normal caliber abdominal aorta. Dilated refluxing left ovarian vein with prominent periuterine varices. No retroperitoneal lymphadenopathy. Tiny fat-containing umbilical hernia. The bladder is normal in appearance. Unremarkable CT appearance of the uterus. Small amount of free pelvic fluid, likely physiologic. No inguinal lymphadenopathy. No acute osseous abnormality. CT/CT abdomen pelvis w IV con IMPRESSION: 1. Moderate to severe stool burden throughout the majority of the colon suggesting constipation. 2. Dilated refluxing left ovarian vein with prominent periuterine varices. 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 Fleischner guidelines were followed.
[2024-01-20] MEDS: iohexoL 350 MG/ML 100 ML INFUS..BTL 85 ML IV (09:14)
[2024-01-20] MEDS: Barium Sulfate Oral (Berry) 450 ML ORAL.SUSP 900 ML PO (09:15)
== END 2024-01-20 06:33 | disposition home or self-care (01) ==
LOC: HO.CT 06:32
PROVIDERS: PCP Internal Medicine; Visit Provider Internal Medicine
DX: R10.32 Left lower quadrant pain (principal)
CPT/HCPCS: 74177; Q9967

== ENCOUNTER 2024-03-05 15:03 | Outpatient (REF) | payer OTHER, SELFPAY ==
[2024-03-06 05:15] LABS: CT PCR NOT DETECTED (Not Detect.); NG PCR NOT DETECTED (Not Detect.)
[2024-03-06 13:09] LABS: Bacterial Vaginosis PCR POSITIVE (Negative); Candida Group PCR NOT DETECTED (Not Detect); Candida glab krusei PCR NOT DETECTED (Not Detect); Trichomonas vaginalis PCR NOT DETECTED (Not Detect)
== END 2024-03-05 15:04 | disposition home or self-care (01) ==
LOC: HO.LAB 15:03
PROVIDERS: PCP Internal Medicine; Visit Provider Advanced Practice Midwife
DX: Z01.419 Encounter for gynecological examination (general) (routine) without abnormal findings (principal); N89.8 Other specified noninflammatory disorders of vagina; N92.0 Excessive and frequent menstruation with regular cycle; R51.9 Headache, unspecified; Z11.3 Encounter for screening for infections with a predominantly sexual mode of transmission; Z98.82 Breast implant status
CPT/HCPCS: 0352U; 0353U; 99395

== ENCOUNTER 2024-03-05 15:03 | Outpatient (AMB) | payer OTHER, SELFPAY ==
[2024-03-05 15:06] VITALS: BP 110/68; BMI 25.0
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
== END 2024-03-05 15:50 | disposition home or self-care (01) ==
LOC: HO.HWSM 15:03
PROVIDERS: PCP Internal Medicine; Visit Provider Advanced Practice Midwife
DX: Z01.419 Encounter for gynecological examination (general) (routine) without abnormal findings (principal); Z11.3 Encounter for screening for infections with a predominantly sexual mode of transmission; R51.9 Headache, unspecified; N92.0 Excessive and frequent menstruation with regular cycle; Z30.09 Encounter for other general counseling and advice on contraception; Z98.82 Breast implant status
CPT/HCPCS: 99395

== ENCOUNTER 2024-03-13 08:09 | Outpatient (REF) | payer OTHER, SELFPAY ==
[2024-03-13 08:21] LABS: MANUAL DIFF FLAG NO
[2024-03-13 08:37] LABS: Basophils Percent Auto 0.5 % (0-2); Eosinophils Absolute Auto 0.1 X10*3/uL (0.0-0.4); Eosinophils Percent Auto 1.4 % (0-4); Hematocrit 35.5 % (37.0-47.0); Hemoglobin 11.5 g/dl (12.0-16.0); Imm Gran Abs Auto 0.01 X10*3/uL (0.00-0.03); Imm Gran Pct Auto 0.2 % (0.0-0.4); Lymphocytes Percent Auto 32.6 % (20-40); Mean Corpuscular HGB Conc 32.4 g/dl (31.0-35.0); Mean Corpuscular Hemoglobin 26.3 pg (27.0-33.0); Mean Corpuscular Volume 81.2 fL (80.0-98.0); Mean Platelet Volume 10.3 fL (9.4-12.3); Monocytes Absolute Auto 0.4 X10*3/uL (0.1-1.2); Neutrophils Absolute Auto 3.7 x10*3/uL (2.0-8.3); Neutrophils Percent Auto 58.3 % (45-73); Platelet Count 264 X10*3/uL (160-400); Red Blood Count 4.37 X10*6/uL (4.20-5.50); Red Cell Distribution Width 14.5 % (11.0-16.0); White Blood Count 6.3 X10*3/uL (4.8-10.8)
[2024-03-13 10:27] LABS: Thyroid Stimulating Hormone 1.63 uIU/mL (0.32-4.0); Vitamin D 25-OH Total 20.9 ng/mL (>30)
== END 2024-03-13 08:10 | disposition home or self-care (01) ==
LOC: HO.LAB 08:09
PROVIDERS: PCP Internal Medicine; Visit Provider Internal Medicine
DX: J45.40 Moderate persistent asthma, uncomplicated (principal); R10.32 Left lower quadrant pain; J30.2 Other seasonal allergic rhinitis; G44.039 Episodic paroxysmal hemicrania, not intractable; E55.9 Vitamin D deficiency, unspecified
CPT/HCPCS: 36415; 82306; 84443; 85025

== ENCOUNTER 2025-01-04 07:20 | Emergency (ER) | payer OTHER, SELFPAY ==
--- NOTE | ~2025-01-04 | XR_ITS ---
CLINICAL HISTORY: cough, sob, asthma 2 views chest Comparison: None Findings: Cardiac and mediastinal contours are normal. Mild interstitial prominence with scattered peribronchial thickening. No focal consolidation. No effusion. No pneumothorax. No acute osseous finding. Impression: Mild interstitial prominence with scattered peribronchial thickening. No focal consolidation. This document has been electronically signed by: Rios Caraballo MD on 01/04/2025 10:10:25
[2025-01-04 07:35] VITALS: BP 129/93; PULSE 72; RESP 16; TEMP 36.8; O2SAT 100; BMI 24.8
[2025-01-04 08:00] LABS: IDNOW Serial# 58CA691E; Strep A Nucleic Acid Negative (Negative)
--- OUTSIDE RECORDS SUMMARY | 2025-01-04 08:09 | XMS_ITS | Clinical Summary ---
Author Organization [facility] ity Address [address] [place] [address] Care Team Providers Care Engineering Lecturer Name Role Phone London Curry DO Primary Care Provider [phone] Surgical History Surgery Date Site/Laterality Comments BREAST SURGERY PROCEDURE: ID BREAST AUGMENTATION WITH IMPLANT Medical History Medical History Date Comments Mild intermittent asthma, uncomplicated DX:Mild intermittent asthma, uncomplicated Family History Medical History Relation Name Comments Hypertension Father Diabetes Maternal Grandmother Hypertension Mother Ovarian cancer Sister Relation Name Status Comments Father Maternal Grandmother Mother Sister Social History Tobacco Use Types Packs/Day Years Used Date Smoking Tobacco: Never Assessed Comments Unknown Sex and Gender Information Value Date Recorded Sex Assigned at Not on file Legal Sex Female 2:00 AM EST Gender Identity Not on file Sexual Orientation Not on file Obstetrics History Plan of Treatment Health Maintenance Due Date Last Done Comments DTaP,Tdap,and Td Vaccines (1 - Tdap) 2004 Hepatitis B Vaccines (1 of 3 - 19+ 3-dose series) 2004 Cervical Cancer Screening: P ap Smear 2006 COVID-19 Vaccine (2023-2 5 season) 2024 Influenza Vaccine (Season Ended) 2025 HIB Vaccines Aged Out No longer eligi ble based on patient's age to complete this topic HPV Vaccines Aged Out No longer eligi ble based on patient's age to complete this topic Hepatitis A Vaccines Aged Out No long er eligible based on patient's age to complete this topic IPV Vaccines Aged Out No longer eligi ble based on patient's age to complete this topic MMR Vaccines Aged Out No longer eligi ble based on patient's age to complete this topic Meningococcal ACWY Vaccine Aged Out N o longer eligible based on patient's age to complete this topic Meningococcal B Vaccine Aged Out No l onger eligible based on patient's age to complete this topic Pneumococcal Vaccine: Pediat rics (0 to 5 Years) and At-Risk Patients (6 to 64 Years) Aged Out No longer eligible b ased on patient's age to complete this topic RSV Immunization Patients Un ira 20 months Aged Out No longer eligible b ased on patient's age to complete this topic Varicella Vaccines Aged Out No longer eligible based on patient's age to complete this topic Advance Directives Documents on File Type Date Recorded 

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
[2025-01-04 08:32] VITALS: PULSE 74; RESP 18; O2SAT 100
[2025-01-04] MEDS: Albuterol Sulfate 2.5 MG, Albuterol/Iprat 2.5/0.5MG 3 ML 3 ML INHALE (08:39)
[2025-01-04 08:49] LABS: Influenza A PCR NEGATIVE (Negative); Influenza B PCR NEGATIVE (Negative); Resp Syncy Virus RNA Qual PCR NEGATIVE (Negative); SARS COV2 PCR INHOUSE NEGATIVE (Negative)
[2025-01-04 10:18] VITALS: PULSE 76; RESP 21; O2SAT 97
[2025-01-04] MEDS: Albuterol Sulfate 2.5 MG, Albuterol Sulfate (0.083%) 2.5 MG 5 MG INHALE (10:22)
[2025-01-04] MEDS: predniSONE 20 MG TABLET 40 MG PO (10:31)
[2025-01-04 11:24] VITALS: BP 114/84; PULSE 88; RESP 16; O2SAT 100
[2025-01-04 11:28] VITALS: BP 114/84; PULSE 88; RESP 16; TEMP 37.2; O2SAT 100
== END 2025-01-04 11:29 | disposition home or self-care (01) ==
PROVIDERS: Emergency Provider Emergency Medicine
DX: J45.901 Unspecified asthma with (acute) exacerbation (principal); R05.9 Cough, unspecified; R06.02 Shortness of breath; Z03.818 Encounter for observation for suspected exposure to other biological agents ruled out; Z79.899 Other long term (current) drug therapy
CPT/HCPCS: 0241U; 71046; 87651; 94640; 99284

== ENCOUNTER → 2025-01-04 08:20 | Outpatient (BNV) | payer SELFPAY | PROVIDERS: Emergency Provider Emergency Medicine; Visit Provider Radiology Vascular & Interventional Radiology | DX: R91.8 Other nonspecific abnormal finding of lung field (principal) | CPT/HCPCS: 71046 ==

== ENCOUNTER 2025-03-04 13:17 | Outpatient (AMB) | payer OTHER, SELFPAY ==
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
[2025-03-04 13:31] VITALS: BP 112/77; PULSE 77; RESP 16; TEMP 36.4; O2SAT 99; BMI 25.8
--- OUTSIDE RECORDS SUMMARY | 2025-03-04 14:24 | XMS_ITS | Clinical Summary ---
Author Organization [facility] ity Address [address] [place] [address] Care Team Providers Care Palletizer Operator Name Role Phone London Curry DO Primary Care Provider [phone] Surgical History Surgery Date Site/Laterality Comments BREAST SURGERY PROCEDURE: [place] BREAST AUGMENTATION WITH IMPLANT Medical History Medical [...] Documents on File Type Date Recorded Patient Kiln Tester Expl anation Health Care Decision (hx) 08/14/2021 CESIA COFFEY DIRECTIVE Care Teams Palletizer Operator Relationship Specialty Start Date End Date London Curry DO [address] [place] [id number] PCP - General Internal Medicine 08/02/21
== END 2025-03-04 14:16 | disposition home or self-care (01) ==
PROVIDERS: PCP Internal Medicine; Visit Provider Physician Assistant Medical
DX: J45.909 Unspecified asthma, uncomplicated (principal); J30.9 Allergic rhinitis, unspecified; R07.9 Chest pain, unspecified

== ENCOUNTER → 2025-03-04 13:17 | Outpatient (BNVA) | payer OTHER, SELFPAY | PROVIDERS: PCP Internal Medicine; Visit Provider Physician Assistant Medical | DX: R05.3 Chronic cough (principal); J45.909 Unspecified asthma, uncomplicated; R07.9 Chest pain, unspecified | CPT/HCPCS: 96127 ==